=== PATIENT | female | born 1935 | race Caucasian/White ===

== ENCOUNTER 2024-09-06 16:01 | Outpatient (NON) | payer MEDICARE, SELFPAY ==
--- OUTSIDE RECORDS SUMMARY | 2024-09-06 16:03 | XMS_ITS | Referral Summary ---
Author Organization [facility] Address [address] [place] [address] Care Team Providers Care Online Marketing Coordinator Name Role Phone Bassam Sanchez MD Primary Care Provider + Encounters Date Type Department Care Team Description 08/27/2024 Telephone [facility] Primary Care at [address] [phone] Bassam Sanchez MD Med Refill 08/03/2024 11:30 AM TRANSPLANTER ORCHID Office Visit [facility] Primary Care at [address] [phone] Bassam Sanchez MD Right sided sciatica (Primary Dx); Osteopenia of multiple sites; BMI 21.0-21.9, adult; 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 07/24/2024 Telephone [facility] Primary Care at [address] [phone] Bassam Sanchez MD Additional Services Or Orders 07/23/2024 Telephone [facility] Primary Care at [address] [phone] Bassam Sanchez MD Test Results 07/23/2024 Telephone [facility] Primary Care at [address] [phone] Bassam Sanchez MD Medical Question/Miscellane ous 07/19/2024 Telephone [facility] Primary Care at [address] [place] [address] Erika Mukherjee 07/13/2024 Telephone [facility] [address] [place] [address] [address] [place] [phone] Reynaldo Justin NP 07/13/2024 7:41 AM TRANSPLANTER ORCHID - 07/13/2024 11:59 PM TRANSPLANTER ORCHID Hospital Encounter [facility] [address] [place] [address] [address] [place] [phone] Discharge Disposition: Discharge to home or self care 07/13/2024 2:45 PM TRANSPLANTER ORCHID Office Visit [facility] [address] [place] [address] [address] [place] [phone] Reynaldo Justin NP Fracture follow-up (Primary Dx); Closed fracture of multiple pubic rami, right, initial encounter (HCC) 07/12/2024 Orders Only [facility] [address] [place] [address] [address] [place] [phone] Reynaldo Justin NP Spine pain, lumbar (Primary Dx) 07/12/2024 Telephone [facility] [address] [place] [address] [address] [place] [phone] Reynaldo Justin NP Mri 07/10/2024 11:57 AM TRANSPLANTER ORCHID - 07/10/2024 11:59 PM TRANSPLANTER ORCHID Hospital Encounter [facility] [address] [place] [address] Lumbar radiculopathy, acute Discharge Disposition: Discharge to home or self care 07/09/2024 Telephone [facility] Primary Care at [address] [place] [phone] Bassam Sanchez MD Medical Question/Miscellane ous 07/06/2024 1:30 PM TRANSPLANTER ORCHID Office Visit [facility] Primary Care at [address] [place] [phone] Bassam Sanchez MD Lumbar radiculopathy, acute (Primary Dx); 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; Encounter for screening mammogram for malignant neoplasm of breast 06/28/2024 Orders Only [facility] Primary Care at [address] [place] [phone] Salazar Teixeira PA 06/28/2024 10:45 AM TRANSPLANTER ORCHID Office Visit [facility] at [address] [place] [phone] Zuleyma Quintero PA Lumbar radiculopathy, acute (Primary Dx) 06/20/2024 1:30 PM TRANSPLANTER ORCHID Office Visit [facility] Primary Care at [address] [place] [phone] Kelle Kumar, SEGUN Other closed fracture of right pubis with routine healing, subsequent encounter (Primary Dx); Hypertension, essential; Acute midline low back pain without sciatica 06/11/2024 Telephone [facility] Primary Care at [address] [place] [address] Michelle Aldridge MD Additional Services Or Orders 06/08/2024 Telephone [facility] [address] [place] [address] [address] [place] [phone] Marvin Joe from Last 3 Months Allergies No known active allergies Medications bimatoprost (LUMIGAN) 0.01 % ophthalmic drops 0.01 %. 0 0 05/17/20 14 Active ascorbic acid (ascorbic acid with macho hips) 500 mg tablet Take as directed 0 0 02/15/20 08 Active omega 6-rjt-esj-fish oil (FISH OIL) 60-90-500 mg capsule,delayed release(DR/EC) 0 0 02/15/20 08 Active Additional Information Patient taking differently: 1 each oral Daily, Reported on 08/03/2024 cholecalciferol (VITAMIN D-3) 1,000 unit Take 1 tablet/capsule (1,000 Units total) by mouth daily Active vitamin b complex tablet Take 1 tablet by mouth daily Active aspirin 81 mg enteric coated tablet Take 1 tablet (81 mg total) by mouth daily Active lisinopriL (PRINIVIL,ZESTR IL) 5 mg tablet TAKE 1 TABLET (5 MG TOTAL) BY MOUTH DAILY. 90 tablet 4 04/10/20 24 2024 Active ezetimibe (ZETIA) 10 mg tablet Take 1 tablet (10 mg total) by mouth daily 03/24/20 Active benzonatate (TESSALON) 100 mg capsuleIndicati ons:Cough Take 1 capsule (100 mg total) by mouth 3 (three) times a day as needed for cough 42 capsule 05/16/20 Active Additional Information Patient not taking.Reported on 08/03/2024 rosuvastatin (CRESTOR) 40 mg tablet TAKE 1 TABLET BY MOUTH EVERY DAY 90 tablet 1 06/16/20 Active lidocaine (LIDODERM) 5 %Indications:Shanita mbar radiculopathy, acute Place 1 patch on the skin daily Wear for 12 hours, remove for 12 hours. Replace with new patch. 10 patch 07/10/20 Active Additional Information Patient not taking.Reported on 08/03/2024 meloxicam (MOBIC) 7.5 mg tabletIndicatio ns:Osteoarthrit is Take 1 tablet (7.5 mg total) by mouth daily 30 tablet 11 07/10/20 24 2024 Active traMADoL (ULTRAM) 50 mg tablet Take 1 tablet (50 mg total) by mouth every 6 (six) hours as needed for pain 30 tablet 07/13/20 Active Additional Information Patient not taking.Reported on 08/03/2024 cinnamon bark 500 mg capsule Take 1 capsule (500 mg total) by mouth daily 06/11/20 Active turmeric 400 mg capsule Take 1 capsule by mouth daily 06/11/20 Active coenzyme Q10 100 mg capsule Take 1 capsule (100 mg total) by mouth daily 06/11/20 Active glucos sul 3WKg-ohv-eyljr- C-Mn (Glucosamine Chondroitin) 550-30-1 mg capsule Take 1 capsule by mouth daily 06/11/20 Active naloxone (NARCAN) 4 mg/actuation spray,non-aeros olIndications:r isk mitigation for opioid overdose,Just in case due to being on Tramadol. Administer 1 spray into affected nostril(s) as needed for opioid reversal Call 911. Administer a single spray in one nostril. Repeat every 3 minutes as needed if no or minimal response. 1 each 08/03/19 25 2025 Active alendronate (FOSAMAX) 70 mg tabletIndicatio ns:Post-Menopau estrella Osteoporosis Take 1 tablet (70 mg total) by mouth every 7 days Take in the morning with a full glass of water, on an empty stomach, and do not take anything else by mouth or lie down for the next 30 min. This is to be taken in addition to VIT D and CA to help support bone strength. 12 tablet 4 08/03/19 25 2025 Active calcium carbonate (OS-MONTRELL) 1,250 mg (500 mg elemental) tabletIndicatio ns:Post-Menopau estrella Osteoporosis Prevention Take 1 tablet (1,250 mg total) by mouth daily 30 tablet 11 08/03/19 25 2025 Active methocarbamoL (ROBAXIN) 500 mg tablet TAKE 1 TABLET (500 MG TOTAL) BY MOUTH 2 (TWO) TIMES A DAY NEEDED FOR MUSCLE SPASMS 60 tablet 08/08/19 25 2024 Active levothyroxine (SYNTHROID) 25 mcg tablet TAKE 1 TABLET BY MOUTH EVERY DAY 100 tablet 1 08/27/19 25 Active levothyroxine (SYNTHROID) 25 mcg tablet TAKE 1 TABLET BY MOUTH EVERY DAY 100 tablet 1 03/24/20 24 2024 Discontinued(R eorder) methocarbamoL (ROBAXIN) 500 mg tablet Take 1 tablet (500 mg total) by mouth 2 (two) times a day as needed for muscle spasms 60 tablet 06/20/20 24 2024 Discontinued Active Problems Problem Noted Date Diagnosed Date Osteopenia of multiple sites 08/03/2024 Overview (08/03/2024): FINDINGS: LEFT FEMORAL NECK: T-score -2.4 LEFT TOTAL HIP: T-score -2.0 LUMBAR SPINE: T-score -1.3 Assessment & Plan (08/03/2024 12:26 PM TRANSPLANTER ORCHID): Chronic, patient reports bone pain with recent fall and broken pubic ramus. DEXA scan 2020: Osteopenia with left femoral neck at-2.4, left hip at -2.0, lumbar spine-1.3. Meds: Vitamin-D Plan Start alendronate every 7 days, take with large glass of water on empty stomach, nothing for 30 minutes afterward, no lying down for 30 minutes. Start calcium and vitamin-D supplements Follow-up DEXA scan Lumbar pain asscoaited with DDD 07/12/2024 Assessment & Plan (07/12/2024 9:03 PM TRANSPLANTER ORCHID): Chronic, stable but having daily symptoms which decrease quality of life. No changes from established baseline, no red flag symptoms reported. Meds: Tylenol, Motrin as needed. Not following with specialist or therapist Kidney function normal 05/2024 Plan Start: Xray Lumbar spine Start: Lidocaine patches daily as needed Start: meloxicam 7.5 mg, educated no other NSAID's Continue: Tylenol 1000mg q6, Toradol prn, heat/Ice, stretching. Monitor with CMP Educated that Toradol is a opiate medication, can be addictive, and can increase risk for falls, resp depression. Have gone over her pain regimen and advised to take the Toradol last and when needed. She does not drive, but advised her to be careful after taking even if cooking and at home. Consider Duloxitine to help decrease chronic pain and transition away from opiate medication. Declined PT referral. 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 Pt not taking medication daily Will keep as third line for pain in spine with sciatic. MME 20 Educated on the risks of opiate medications: falls, resp depression, tolerance, addition. Pt reported she is not taking meications daily. Have advised to only take medication when needed and to use tylenol and other supportive care first. She does not have narcan rx, will start to mitigate risks. 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 Pt not taking medication daily MME 20 Educated on the risks of opiate medications: falls, resp depression, tolerance, addition. Pt reported she is not taking meications daily. Have advised to only take medication when needed and to use tylenol and other supportive care first. She does not have narcan rx, will start to mitigate risks. Closed fracture of right pubis 05/29/2024 Other closed fracture of right pubis, initial en counter 05/29/2024 Urethral spasm 05/16/2024 Assessment & Plan (05/16/2024 4:30 PM CDT): New concern Not at goal Poct dipstick all negative Encourage hydration and f/u prn Post-viral cough syndrome 05/15/2024 Assessment & Plan (05/16/2024 3:47 PM CDT): New concern 2/2 covid 2-3 weeks ago Tessalon perles and albuterol inhaler Chest xray ordered F/u in 1 month if no improvement Elevated ALT measurement 05/11/2023 Assessment & Plan (05/11/2023 10:56 AM CDT): Alt of 53 Mildly elevated She is going to cut back on some wine Recheck in 6 months. If it continues to go up, will consider hepatitis acute panel and US of the liver Hypertension, essential 05/04/2022 Assessment & Plan (06/20/2024 1:57 PM TRANSPLANTER ORCHID): Chronic, stable at goal. Continue Lisinopril 5mg as Rx. Recommend heart-healthy diet and regular exercise, resumed as tolerated with healing of MSK abnormality. Assessment & Plan (04/10/2024 9:41 PM CDT): Bp in the office today BP Readings from Last 1 Encounters: 01/23/24 120/86 Goal <140/90 Continue 2.5mg of lisinopril Recommend DASH diet, heart-healthy lifestyle, exercise. Discussed the risks of hypertension. F/u in 6 month Assessment & Plan (11/14/2023 11:22 AM CDT): Bp in the office today BP Readings from Last 1 Encounters: 11/14/23 140/78 Goal <140/90 Continue 2.5mg of lisinopril Discussed risk and benefits of medication Recommend DASH diet, heart-healthy lifestyle, exercise. Discussed the risks of hypertension. F/u in 6 month Assessment & Plan (05/11/2023 10:55 AM CDT): Bp in the office today BP Readings from Last 1 Encounters: 05/11/23 150/78 Repeat 124/78 Goal ,130/80 Continue 2.5mg of lisinopril Discussed risk and benefits of medication Recommend DASH diet, heart-healthy lifestyle, exercise. Discussed the risks of hypertension. F/u in 6 month Assessment & Plan (01/12/2023 9:52 AM CDT): Bp in the office today BP Readings from Last 1 Encounters: 01/12/23 138/66 Continue lisinopril 5mg daily Discussed risk and benefits of medication Recommend DASH diet, heart-healthy lifestyle, exercise. Discussed the risks of hypertension. F/u at annual visit Assessment & Plan (11/04/2022 10:30 AM CDT): Bp in the office today BP Readings from Last 1 Encounters: 05/04/22 148/70 Start lisinopril 5mg daily Discussed risk and benefits of medication Log bp at home Recommend DASH diet, heart-healthy lifestyle, exercise. Discussed the risks of hypertension. F/u in 1 months Assessment & Plan (05/04/2022 3:03 PM CDT): Bp in the office today BP Readings from Last 1 Encounters: 05/04/22 148/70 Log bp at home Recommend DASH diet, heart-healthy lifestyle, exercise. Discussed the risks of hypertension. F/u in 6 months If no improvement may need to start medications. Return sooner if worsening bp Pulmonary fibrosis (CMS/HCC) 01/25/2019 Assessment & Plan (04/10/2024 9:44 PM CDT): Stable / clinically quiescent. Will continue to monitor. Assessment & Plan (05/09/2023 3:34 PM CDT): Stable / clinically quiescent. Will continue to monitor. Assessment & Plan (04/30/2021 10:50 AM CDT): Stable and without issues flu shot and see with a flair Assessment & Plan (10/28/2020 11:21 AM CDT): Stable pulm fibrosis and no interventio fall flu shost had covid shots Assessment & Plan (06/26/2020 10:10 AM TRANSPLANTER ORCHID): pulm scaring stable land xray cleared ost infectgion Assessment & Plan (04/17/2020 5:04 PM CDT): Stable land alba lead to Delay in Improvement in cxr.discussed recs fdor flu alhd p sh ot series but declines Assessment & Plan (12/26/2019 2:00 PM CDT): Stable and little cough Assessment & Plan (06/21/2019 1:44 PM TRANSPLANTER ORCHID): Stable Findings oncxr on repeat declines flu shot. Assessment & Plan (01/25/2019 4:35 PM CDT): cxr abn . With pulm fibrosis. Check cxr the week before reutrn for f.u on fall flu shots and expect higher risk for p rolonged cough with get uri Right sided sciatica 06/21/2018 Assessment & Plan (08/03/2024 12:24 PM TRANSPLANTER ORCHID): Chronic, worse after recent fall Bi red flag symptoms reported Pt declined Pain management Consider gabapentin Advised weight loss, hydration, loose fitting cloths PT/Ot referral Assessment & Plan (06/21/2018 4:12 PM TRANSPLANTER ORCHID): 2 months and trial pt and zxee if helps. Look at xray if cont to stay active. 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 CLASSIFICATION Healthy weight: 18.5 to less than 25 Wt Readings from Last 3 Encounters: 08/03/24 55.8 kg (123 lb) 07/13/24 54.9 kg (121 lb) 07/06/24 56.2 kg (124 lb) Plan - Encouraged pt to continue with lifestyle modification: Diet/exercise, food tracking apps, diary to reflect on relationship with food. - Have educated patient that Mediterranean diet is widely accepted as the most balanced diet for both weight loss and sustained weight loss. Handout given. - Education given on risk associated with elevated BMI - Will set up follow up apt to discuss lifestyle modification, nutrition services, weight loss clinic, medications, CBT - Labs: CBC, CMP, TSH, A1c, lipids as needed to rule out medical causes. - Referrals today: No - BMI Follow-up includes: nutrition counseling, exercise counseling, and education provided. Assessment & Plan (11/02/2021 10:44 AM CDT): Keep st stable Assessment & Plan (04/30/2021 10:49 AM CDT): Work to keep wt stable Assessment & Plan (10/28/2020 11:29 AM CDT): Wt iniched up Assessment & Plan (06/26/2020 10:14 AM TRANSPLANTER ORCHID): Work to kep stable Assessment & Plan (12/26/2019 2:09 PM CDT): Work to keepwt stable Assessment & Plan (06/21/2018 4:09 PM TRANSPLANTER ORCHID): Work to keep stable Assessment & Plan (05/30/2017 9:58 AM TRANSPLANTER ORCHID): Work to keep wt stable Encounter for wellness examination 05/30/2017 Assessment & Plan (04/10/2024 9:45 PM CDT): Labs reviewed and discussed Flu decline Mammo up to date F/u in 1 year for annual Assessment & Plan (05/11/2023 10:07 AM CDT): Labs reviewed and discussed Flu decline mammo Colonosocopy:discusseds risks and benefits given age and negative colonoscopies in the past and would like to defer F/u in 1 year for annual Assessment & Plan (05/04/2022 2:58 PM CDT): Ordered CBC, cmp, lipid, hgb a1c, HIV, hep c, TSH, and free t4 Flu decline mammo referral placed Colonosocopy:discusseds risks and benefits given age and negative colonoscopies in the past and would like to defer F/u in 1 year for annual Assessment & Plan (04/30/2021 10:55 AM CDT): Low fallrisk depresion screen neg and score 0. cognitie screen normal no other md's seen Up to date bmd Colon 1 yrs ago and at age 85 aged out.suggest lyn but aged out does no take flu Shingles shot Had and has ahd covid See's no other md's Assessment & Plan (12/26/2019 2:11 PM CDT): Low fal lrisk depresion screen neg cog screen nl up to date on lyn Declines flu shots and p shot. Had shingles shot. At age 84 colon not done increase zetia to a fl tab Assessment & Plan (12/20/2018 3:22 PM CDT): Low fall risk. Depression screen nl. Colon screen in a yr.needs vaccine but declines, Assessment & Plan (05/30/2017 10:07 AM TRANSPLANTER ORCHID): dedliens all vaccines except eh shingles that she had. Colon 2009 and repeat 10 yrs usuaool. Lyn tahis last spring. bmd last fall and not repeat in a yr yet. IGT (impaired glucose tolerance) 05/30/2017 Assessment & Plan (11/02/2021 10:42 AM CDT): a1c at 6.2 and pre diabetic and stable Assessment & Plan (04/30/2021 10:51 AM CDT): a1c in general same rangge and current 5.7dn 5.6 nl Assessment & Plan (10/28/2020 11:26 AM CDT): a1c at 6.1 and up from 5.8 so watch diet Assessment & Plan (06/26/2020 10:15 AM TRANSPLANTER ORCHID): a1c at 5.8 and was 6.0 and better. Assessment & Plan (12/26/2019 2:02 PM CDT): a1c at 6.0 and frandy ped Assessment & Plan (06/21/2019 1:47 PM TRANSPLANTER ORCHID): a1c at 6.2 and 6.5 diabetes Assessment & Plan (01/25/2019 4:38 PM CDT): Watch diet Assessment & Plan (12/20/2018 3:15 PM CDT): The a1c at 5.9 and 5.6 nl. Assessment & Plan (06/21/2018 4:06 PM TRANSPLANTER ORCHID): a1c at 5.7 and 5.6 nl. Assessment & Plan (11/28/2017 10:18 AM CDT): a1c at 5.9 and 5.6 nl Assessment & Plan (05/30/2017 10:02 AM TRANSPLANTER ORCHID): a1c at 5.9 and 5.6 and lesssnl. Bilateral carotid artery disease 05/30/2017 Assessment & Plan (04/10/2024 9:43 PM CDT): Stable / clinically quiescent. Will continue to monitor. Assessment & Plan (05/09/2023 3:27 PM CDT): She usually gets the Dopplers on her home. Unchanged and stable Recommend repeat in 1 year Assessment & Plan (05/04/2022 2:57 PM CDT): She usually gets the Dopplers on her home. Unchanged and stable Recommend repeat in 1 year Assessment & Plan (11/02/2021 10:44 AM CDT): r mod and l mild on screen recheck maybe 2 yrs or less asa and tight risk Assessment & Plan (04/30/2021 10:48 AM CDT): Prior mild and Several risk Tight but ask to repeat carotid study Assessment & Plan (10/28/2020 11:23 AM CDT): Carotid stable and recheck every 2 yrs and stay on tight risk congtorll Assessment & Plan (06/26/2020 10:14 AM TRANSPLANTER ORCHID): Tight risk ctonroll. Assessment & Plan (12/26/2019 2:01 PM CDT): Asa and risk contoll Assessment & Plan (06/21/2019 1:48 PM TRANSPLANTER ORCHID): Tight risk controll Assessment & Plan (01/25/2019 4:38 PM CDT): erly this yr and repeat in 18 month and tight riskcontroll Assessment & Plan (12/20/2018 3:13 PM CDT): Take asa, risk controll Assessment & Plan (06/21/2018 4:09 PM TRANSPLANTER ORCHID): Tighten risk . ldl less tehn 90 and prefer less then 70 rescan q 2 yrs. Will ask to repeat for nov Assessment & Plan (11/28/2017 10:20 AM CDT): Cont asa and check every 2 yrs Assessment & Plan (05/30/2017 10:04 AM TRANSPLANTER ORCHID): Stay on asa and recheck every 2yrs. Nuclear senile cataract 10/09/2014 Primary open angle glaucoma 10/09/2014 Hyperlipidemia 05/17/2014 Overview (10/22/2016): Hyperlipemia Assessment & Plan (04/10/2024 9:42 PM CDT): The ASCVD Risk score (Salvador SMITH, et al., 2019) failed to calculate for the following reasons: The 2019 ASCVD risk score is only valid for ages 40 to 79 Stable / clinically quiescent. Will continue to monitor. Assessment & Plan (11/14/2023 11:33 AM CDT): Stable / clinically quiescent. Will continue to monitor. [place] lightheaded with the cholesterol medication so he stopped taking it. Can consider taking cholesterol medication 3x/week Lipid panel ordered Assessment & Plan (05/09/2023 3:28 PM CDT): Stable / clinically quiescent. Will continue to monitor. Continue zetia 10mg and rosuvastatin 40mg daily Assessment & Plan (05/04/2022 2:39 PM CDT): Stable / clinically quiescent. Will continue to monitor. Continue zetia 10mg and rosuvastatin 40mg daily Assessment & Plan (11/02/2021 10:42 AM CDT): ldl at 61 and great and At a level to ohelp stop and possible reverse disease. Your cholesterol in the form of ldl (bad) cholesterol,hdl(good) cholesterol and triglycerides are monitored. The triglycerides respond to reduction/controll of your simple carbs/sugars In such items as sugared soda/sweet tea along with fruit juices(containing natural sugar) even if no added sugar is added. LDL cholesterol is reduced with reducing daily intake of fats and deandra. saturated fats. The monosaturated fats like olive oil are not harmful except in the calories they contained. Whole milk cheese needs to be remembered along with whole milk products And limited. Assessment & Plan (04/30/2021 10:49 AM CDT): ldl at 63 and great with last 77 and keep meds adn Your cholesterol in the form of ldl (bad) cholesterol,hdl(good) cholesterol and triglycerides are monitored. The triglycerides respond to reduction/controll of your simple carbs/sugars In such items as sugared soda/sweet tea along with fruit juices(containing natural sugar) even if no added sugar is added. LDL cholesterol is reduced with reducing daily intake of fats and deandra. saturated fats. The monosaturated fats like olive oil are not harmful except in the calories they contained. Whole milk cheese needs to be remembered along with whole milk products And limited. Assessment & Plan (10/28/2020 11:26 AM CDT): ldl at 61 and good congtorll. The common cold or uri(upper respiratory infections) are uniformly caused by viruses.The use of antibiotics for these infections are discouraged in our day and age as a risk without much if any benefit,Increase fluids will help to thin the secretions.Over the counter meds/cold drugs do not cure this problem but can provide help in tolerating the illness.. Some find the decongestant meds helpful but many find them causing more complaints then they are worth. Cough meds come into play when you cannot control the cough,This comes into play deandra.at night when you are trying to sleep. Short term use of nasal decongestants are helpful ,deandra.at night, Using them at a full dose for more then 3 days is highly associated with your nose becoming addicted to them,when this happens the nasal membranes will dilate the blood vessels within the nasal wall and weep secretions that plug up your nose. When this occurs it will take several days to return to normal. There is a place for nasal steroid during a cold as a way to help limit secretions and not lead to a nasal addition. Nasal over dryness and subsequent bleeding then can occur.ar which time yo will need to reduce or stop there use for the near future. Assessment & Plan (06/26/2020 10:12 AM TRANSPLANTER ORCHID): ldl at 77 and tolerates meds and maxed out on crestor and aetia 10 no chags and watch fats in dietYour cholesterol in the form of ldl (bad) cholesterol,hdl(good) cholesterol and triglycerides are monitored. The triglycerides respond to reduction/controll of your simple carbs/sugars In such items as sugared soda/sweet tea along with fruit juices(containing natural sugar) even if no added sugar is added. LDL cholesterol is reduced with reducing daily intake of fats and deandra. saturated fats. The monosaturated fats like olive oil are not harmful except in the calories they contained. Whole milk cheese needs to be remembered along with whole milk products And limited. Assessment & Plan (12/26/2019 2:06 PM CDT): ldl at 69 and want here or tighterYour cholesterol in the form of ldl (bad) cholesterol,hdl(good) cholesterol and triglycerides are monitored. The triglycerides respond to reduction/controll of your simple carbs/sugars In such items as sugared soda/sweet tea along with fruit juices(containing natural sugar) even if no added sugar is added. LDL cholesterol is reduced with reducing daily intake of fats and deandra. saturated fats. The monosaturated fats like olive oil are not harmful except in the calories they contained. Whole milk cheese needs to be remembered along with whole milk products And limited. Assessment & Plan (06/21/2019 1:47 PM TRANSPLANTER ORCHID): ldl at 85 on max crestor ,discussed adding 1/2 qetia to and see drop about 20Your cholesterol in the form of ldl (bad) cholesterol,hdl(good) cholesterol and triglycerides are monitored. The triglycerides respond to reduction/controll of your simple carbs/sugars In such items as sugared soda/sweet tea along with fruit juices(containing natural sugar) even if no added sugar is added. LDL cholesterol is reduced with reducing daily intake of fats and deandra. saturated fats. The monosaturated fats like olive oil are not harmful except in the calories they contained. Whole milk cheese needs to be remembered along with whole milk products And limited. Assessment & Plan (01/25/2019 4:38 PM CDT): L;dl target 60 if able Assessment & Plan (12/20/2018 3:16 PM CDT): ldl at 78 and good Assessment & Plan (06/21/2018 4:18 PM TRANSPLANTER ORCHID): ldl dropped to 86 and bvetter and want to keep hereYour cholesterol in the form of ldl (bad) cholesterol,hdl(good) cholesterol and triglycerides are monitored. The triglycerides respond to reduction/controll of your simple carbs/sugars In such items as sugared soda/sweet tea along with fruit juices(containing natural sugar) even if no added sugar is added. LDL cholesterol is reduced with reducing daily intake of fats and deandra. saturated fats. The monosaturated fats like olive oil are not harmful except in the calories they contained. Whole milk cheese needs to be remembered along with whole milk products And limited.will go to 40 mg Assessment & Plan (11/28/2017 10:18 AM CDT): ldl at 92 and target into 60'sagrees to go to 20 mgon the dcrestorYour cholesterol in the form of ldl (bad) cholesterol,hdl(good) cholesterol and triglycerides are monitored. The triglycerides respond to reduction/controll of your simple carbs/sugars In such items as sugared soda/sweet tea along with fruit juices(containing natural sugar) even if no added sugar is added. LDL cholesterol is reduced with reducing daily intake of fats and deandra. saturated fats. The monosaturated fats like olive oil are not harmful except in the calories they contained. Whole milk cheese needs to be remembered along with whole milk products And limited. Assessment & Plan (05/30/2017 9:58 AM TRANSPLANTER ORCHID): ldl at 90 and dropped 40. tstay at present. Expect with a ading the low dose thyroid will likely drop the ldl futrrther.Your cholesterol in the form of ldl (bad) cholesterol,hdl(good) cholesterol and triglycerides are monitored. The triglycerides respond to reduction/controll of your simple carbs/sugars In such items as sugared soda/sweet tea along with fruit juices(containing natural sugar) even if no added sugar is added. LDL cholesterol is reduced with reducing daily intake of fats and deandra. saturated fats. The monosaturated fats like olive oil are not harmful except in the calories they contained. Whole milk cheese needs to be remembered along with whole milk products And limited. Hypothyroidism 12/01/2013 Overview (10/22/2016): HYPOTHYROIDISM NOS Assessment & Plan (04/10/2024 9:43 PM CDT): Stable Continue levothyroxine 25mcg daily Assessment & Plan (05/09/2023 3:32 PM CDT): Stable Continue levothyroxine 25mcg daily Assessment & Plan (05/04/2022 2:39 PM CDT): Stable Continue levothyroxine 25mcg daily Assessment & Plan (11/02/2021 10:43 AM CDT): Check on reutrn Assessment & Plan (04/30/2021 10:50 AM CDT): tsh at 3.6 nl and no med changs and keep same Assessment & Plan (10/28/2020 11:27 AM CDT): Stay on meds was not aware name and thought not taking called pharm and confirm on 215 ug and will cont and tsh onreturn Assessment & Plan (06/26/2020 10:12 AM TRANSPLANTER ORCHID): tsh in 3's and nl and no chags in meds Assessment & Plan (12/26/2019 2:08 PM CDT): Check tsh on return Assessment & Plan (06/21/2019 1:48 PM TRANSPLANTER ORCHID): Check tsh on return Assessment & Plan (01/25/2019 4:38 PM CDT): No cohanges and chedk yr'ly Assessment & Plan (12/20/2018 3:15 PM CDT): tsh 3 and nl no changs Assessment & Plan (08/04/2018 8:29 AM TRANSPLANTER ORCHID): Nov TSH 3.07 and WNL Assessment & Plan (06/21/2018 4:09 PM TRANSPLANTER ORCHID): Keep meds stable and check tsh o return Assessment & Plan (11/28/2017 10:18 AM CDT): tsh perferct and stay on same dose Assessment & Plan (05/30/2017 9:59 AM TRANSPLANTER ORCHID): tsh at 5.45 and as drifted up it is mildly off meaning the thyroid is working harder trying to keep up. Add a slmall dose of thryoid meds and usually this will also frandy the chol level. But I don't expet that you will be aware of the thyroid effect. 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 If no improvement may consider referral to infectious disease Assessment & Plan (12/26/2023 3:17 PM CDT): New concern Worsening Start keflex 500mg 4x/day for 7 days Red flags discussed F/u if no improvement in 7-10 days and will consider extending the antibiotic or changing it Acute cystitis without hematuria 06/26/2020 11/02/2021 Assessment & Plan (06/26/2020 10:44 AM TRANSPLANTER ORCHID): Freq,urgency dysuria Starting 4 days ago urine very dilute so abn elements diluted out will wait for culture and treat with macrobid till results back Acute bronchitis due to othe r specified organisms 12/27/2018 06/21/2019 Assessment & Plan (01/25/2019 4:36 PM CDT): No cough I presence or With deep breath. Much much better Assessment & Plan (01/03/2019 2:47 PM CDT): produictive cough better with cougho itself cont. Does not hear wheze anymore. 5 days 500 zithromax. Landen with fev1% 72 and pef 40 with mild obstrucgtive defect. Trial prednsone tpaER. GET A ONE TME CXR NOONE FOR YRS IF EEVER RE EVAL 2-3 WKS Assessment & Plan (12/27/2018 1:45 PM CDT): Cough and wheeze new. One time cough spot blood. Spells of cough and take away breath deandra at night. gibven time. speels of cougho alba try zithromaasz an d ask to see nex week and re eval. Trial 500 x's 5 zithromax At low risk for fall 12/20/2018 025 Assessment & Plan (04/30/2021 10:48 AM CDT): Low fall risk Assessment & Plan (12/26/2019 2:08 PM CDT): Low fall risk Assessment & Plan (12/20/2018 3:13 PM CDT): Low fall risk Pneumonia, bacterial 020 Assessment & Plan (04/17/2020 5:00 PM CDT): Post hospital and rx no cough or Fever feelse good. Repeat cxr o Dc beteter but not cleared. 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 Immunizations Immunization Administration Dates Next Due COVID-19 mRNA (C[employer]Cloud) 0.3 m L (30 mcg) vaccine (12 years and up) 05/16/2024,04/08/2023 Influenza, Trivalent, Adjuva nted, Intramuscular 05/16/2024 Influenza, Trivalent, IM (MDV) 06/05/2008 Influenza, Unspecified 06/20/2024(Deferr ed: Patient Refused),11/14/2023(Deferred: Patient Refused),05/04/2022(Deferred: Patient Refused),02/15/2022(Deferred: Patient Refused),04/30/2021(Deferred: Patient Refused),02/18/2021(Deferred: Patient Refused),02/15/2021(Deferred: Patient Refused),04/17/2020(Deferred: Patient Refused),06/21/2019(Deferred: Patient Refused),03/27/2019(Deferred: Patient Refused),06/21/2018(Deferred: Patient Refused - HM update),04/17/2018(Deferred: Patient Refused) Moderna Sars-cov-2 Bivalent Vaccine 50 Mcg/0.5 mL (12+ YRS)-Blue/Julio 05/05/2022 Pfizer SARS-CoV-2 Monovalent Vaccination (12+ Yrs) JULIO-READY TO USE 12/25/2021 Pfizer SARS-CoV-2 Monovalent Vaccination (12+ Yrs) PURPLE 04/06/2023,12/25/2021,05/05/2021,09/05,08/11/2020 Pfizer Sars-Cov-2 Bivalent V accination (12+ YRS) 05/04/2022 Pneumococcal Conjugate PCV 13 06/26/2020 Pneumococcal Conjugate, Unspecified 05/11/2023(D eferred: Patient Refused) RSV Vaccine, Pref, Recombina nt, Subunit, Adjuvanted, PF, IM (Arexvy) 04/08/2023 Rotavirus, Unspecified 04/06/2023 ZOSTER Recombinant 09/19/2019,06/06/2019 Social History Tobacco Use Types Packs/Day Years Used Date Smoking Tobacco: Never Smokeless Tobacco: Never Tobacco Cessation:Counseling Given: Not Answered Alcohol Use Standard Drinks/Week Comments Yes 0 (1 standard drink = 0.6 oz pur e alcohol) [facility] dot429ities Answer Date Recorded In the past 12 months has [employer], gas, oil, or water [employer] threatened to shut off services in your home? No 05/30/2024 Social Connection and Isolat ion Panel [NHANES] Answer Date Recorded In a typical week, how many times do you talk on the phone with family, friends, or neighbors? More than three times a week 05/30/2024 How often do you get togethe r with friends or relatives? Three times a week 05/30/2024 How often do you attend chur ch or faith services? Never 05/30/2024 Do you belong to any clubs o r organizations such as evangelical groups, unions, fraternal or athletic groups, or school groups? No 05/30/2024 How often do you attend meet ings of the clubs or organizations you belong to? Never 05/30/2024 Are you , , di vorced, , never , or living with a partner? 05/30/2024 AUDIT-C Answer Date Recorded Q1: How often do you have a drink containing alcohol? Never 07/13/2024 Q2: How many drinks containi ng alcohol do you have on a typical day when you are drinking? Patient does not drink Q3: How often do you have si x or more drinks on one occasion? Never 07/13/2024 Overall Financial Resource Strain (CARDIA) Answe r Date Recorded How hard is it for you to pa y for the very basics like food, housing, medical care, and heating? Not very hard 05/30/2024 PHQ-2 Answer Date Recorded PHQ-2 Total Score (If total score is 3 or more points, staff should administer the PHQ-9) 0 07/06/2024 Hunger Vital Sign Answer Date Recorded Within the past 12 months, y ou worried that your food would run out before you got the money to buy more. Never true 05/30/20 24 Within the past 12 months, t he food you bought just didn't last and you didn't have money to get more. Never true 05/30/2024 PRAPARE - Transportation Answer Date Re corded In the past 12 months, has l ack of transportation kept you from medical appointments or from getting medications? No 05/18 In the past 12 months, has l ack of transportation kept you from meetings, work, or from getting things needed for daily living? No 05/30/2024 Housing Stability Vital Sign Answer Dimas e Recorded In the last 12 months, was t here a time when you were not able to pay the mortgage or rent on time? No 05/30/2024 In the past 12 months, how m any times have you moved where you were living? 0 05/30/2024 At any time in the past 12 m [facility], were you homeless or living in a penitentiary (including now)? No 05/30/2024 Personal Safety Answer Date Recorded Have you ever been in or are you currently in a harmful physical or emotional relationship or is someone making you feel afraid or unsafe? Denies 05/29/2024 Comments No Sex and Gender Information Value Date Recorded Sex Assigned at Not on file Legal Sex Female 1:06 PM TRANSPLANTER ORCHID Gender Identity Not on file Sexual Orientation Not on file Last Filed Vital Signs Vital Sign Reading Time Taken Comments Blood Pressure 132/72 08/03/2024 11:33 AM TRANSPLANTER ORCHID Pulse 76 08/03/2024 11:33 AM TRANSPLANTER ORCHID Temperature 36.9 C (98.4 F) 08/03/2024 11:33 AM TRANSPLANTER ORCHID Respiratory Rate 16 08/03/2024 11:33 AM TRANSPLANTER ORCHID Oxygen Saturation 99% 06/28/2024 10:36 AM TRANSPLANTER ORCHID Inhaled Oxygen Concentration - - Weight 55.8 kg (123 lb) 08/03/2024 11:33 AM TRANSPLANTER ORCHID Height 162.6 cm (5' 4 ) 08/03/2024 11:33 AM TRANSPLANTER ORCHID Body Mass Index 21.11 08/03/2024 11:33 AM TRANSPLANTER ORCHID Plan of Treatment Not on file Procedures Procedure Name Priority Date/Time Associated Diagnosis Comments XR PELVIS 1 OR 2 VIEWS Schedule Routine, Read Routine (OP Routine) 07/13/2024 2:41 PM TRANSPLANTER ORCHID Fracture follow-up XR LUMBAR SPINE AP LAT FLEX EX Schedule Routine, Read Routine (OP Routine) 07/10/2024 12:15 PM TRANSPLANTER ORCHID Lumbar radiculopathy, acute SCREENING MAMMOGRAM BILATERAL W VICTORIA Schedule Routine, Read Routine (OP Routine) 09/07/2023 12:55 PM TRANSPLANTER ORCHID Visit for screening mammogram HM COLONOSCOPY Routine 12/17/2009 from Last 3 Months or Most Recently Relevant to Health Maintenance Results * XR Pelvis 1 or 2 Views (07/13/2024 2:41 PM TRANSPLANTER ORCHID) Anatomical Region Laterality Modality Body, Pelvis N/A Digital Radiogra phy Narrative 07/13/2024 3:10 PM TRANSPLANTER ORCHID Superior and inferior right pubic rami fractures are again seen. No worsening displacement is noted. Limited healing is seen Reynaldo Cory Justin PURCHASING ANALYST IMG XR PROCEDURES Final Result * XR Spine Lumbar Ap Lat Flex Ext min 4 Views (07/10/2024 12:15 PM TRANSPLANTER ORCHID) Anatomical Region Laterality Modality L-spine N/A Computed Radiogr aphy 07/11/2024 1:36 PM TRANSPLANTER ORCHID Narrative 07/11/2024 1:42 PM TRANSPLANTER ORCHID EXAM DESCRIPTION: XR SPINE LUMBAR AP LAT FLEX EXT MIN 4 VIEWS REASON FOR STUDY: Lumbar back pain Lower back pain X's 1 month. Pain radiates down left leg. Fall Nov.1 fx. Pelvis. TECHNIQUE: Frontal, lateral, flexion, extension and cone-down radiographic view(s) of the lumbar spine. COMPARISON: No direct comparison is available. Relevant portions of the CT abdomen and pelvis dated 05/29/2024. FINDINGS: There are 5 acz-oaa-arscvji lumbar type vertebral bodies. Insert demineralized there is mild levoconvex curvature. Grade 1 retrolisthesis of L1 on L2 and L2 on L3 without significant change on flexion or extension. The L3 superior endplate mild depression is likely a Schmorl's node as seen on the previous CT abdomen and pelvis. Severe intervertebral disc height loss with endplate degenerative changes at L1-L2, L5-S1 and to a lesser extent at the remainder of the lumbar levels. There is diffuse facet arthropathy. Fractures of the right superior and inferior pubic rami are again seen. Previously noted sacral fractures are not well visualized on these radiographs. There are vascular calcifications. IMPRESSION: 1. 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 2. Lumbar vertebral body heights are maintained. 3. Further evaluation with MRI as clinically indicated. 4. Right superior inferior pubic rami fractures are again seen. 5. Additional findings as above. THIS IS AN ELECTRONICALLY VERIFIED FINAL REPORT 07/11/2024 1:42 PM - Electronically signed by Dar Reagan D.O. AP: AP Report ID: [id number] Reading Location: [id number] Procedure Note Dar Reagan, DO - 07/11/2024 EXAM DESCRIPTION: XR SPINE LUMBAR AP LAT FLEX EXT MIN 4 VIEWS REASON FOR STUDY: Lumbar back pain Lower back pain X's 1 month. Pain radiates down left leg. Fall Nov.1fx. Pelvis. TECHNIQUE: Frontal, lateral, flexion, extension and cone-downradiographic view(s) of the lumbar spine. COMPARISON: No direct comparison is available. Relevant portions of theCT abdomen and pelvis dated 05/29/2024. FINDINGS: There are 5 dlh-gmo-tzcvlpt lumbar type vertebral bodies. Insert demineralized there is mild levoconvex curvature. Grade 1 retrolisthesisof L1 on L2 and L2 on L3 without significant change on flexion or extension.The L3 superior endplate mild depression is likely a Schmorl's node as seen onthe previous CT abdomen and pelvis. Severe intervertebral disc height losswith endplate degenerative changes at L1-L2, L5-S1 and to a lesser extent atthe remainder of the lumbar levels. There is diffuse facet arthropathy. Fractures of the right superior and inferior pubic rami are again seen. Previously noted sacral fractures are not well visualized on these radiographs. There are vascular calcifications. IMPRESSION: 1. 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 2. Lumbar vertebral body heights are maintained. 3. Further evaluation with MRI as clinically indicated. 4. Right superior inferior pubic rami fractures are again seen. 5. Additional findings as above. THIS IS AN ELECTRONICALLY VERIFIED FINAL REPORT 07/11/2024 1:42 PM - Electronically signed by Dar Reagan D.O. AP: AP Report ID: [id number] Reading Location: [id number] us Bassam Sanchez MD IMG XR PROCEDURES Final Result * SCREENING MAMMOGRAM BILATERAL W VICTORIA (09/07/2023 12:55 PM TRANSPLANTER ORCHID) Anatomical Region Laterality Modality Breast Bilateral Mammography 09/07/2023 1:07 PM TRANSPLANTER ORCHID Impressions 09/07/2023 1:07 PM TRANSPLANTER ORCHID There is no mammographic evidence of malignancy. A 1 year screening mammogram is recommended. BI-RADS: 1 - Negative. The patient has been or will be contacted. The patient will be entered into a reminder system with a target due date of 1 year for her next mammogram. Electronically signed by: Yanet Hand M.D. Narrative 09/07/2023 1:07 PM TRANSPLANTER ORCHID EXAMINATION: SCREENING MAMMOGRAM BILATERAL W VICTORIA ORDERING HEALTHCARE PROVIDER: MICHELLE ALDRIDGE HISTORY: Routine screening mammography. COMPARISON: 10/03/2019, 10/20/2016, 12/03/2014 TECHNIQUE: CC and MLO views of the bilateral breasts were obtained with digital technique using breast tomosynthesis with C view. Computer aided detection was utilized. FINDINGS: DENSITY: There are scattered fibroglandular elements in the bilateral breasts. BREASTS: There are no suspicious masses, suspicious calcifications, or other suspicious findings in either breast. There has been no suspicious interval change. Michelle Aldridge MD IMG MAMMO PROCEDURES Final Result * COLONOSCOPY (12/17/2009) Colonoscopy Normal Historical Provider HEALTH MAINTENANCE Final Result from Last 3 Months or Most Recently Relevant to Health Maintenance Insurance [employer] MEDICARE A[employer] MEDICARE Advance Directives For more information, please contact: [phone] * Full Code (Latest Code Status on File) Date Activated Date Inactivated Comments 05/29/2024 9:52 PM 06/01/2024 5:33 PM * LIMITED - No CPR Date Activated Date Inactivated Comments 04/07/2020 1:14 PM 04/09/2020 10:54 PM Question Answer Comments Provide aggressive medical m anagement before a full cardiopulmonary arrest occurs. Use antibiotics, IV Fluids, and medical treatment unless specifically selected below: No intubationNo cardioversionNo internal / external pacemakerNo vasopressors * Full Code Date Activated Date Inactivated Comments 04/07/2020 1:10 PM 04/07/2020 1:14 PM Care Teams Online Marketing Coordinator Relationship Specialty Start Date End Date Bassam Sanchez MD [id number] [place] [id number] PCP - General Family Medicine 07/06/24
--- OUTSIDE RECORDS SUMMARY | 2024-09-06 16:03 | XMS_ITS | Clinical Summary ---
Author Organization [facility] Address [address] [place] [address] Care Team Providers Care Marketing Communications Leader Name Role Phone Bassam Sanchez MD Primary Care Provider + Allergies No known active allergies Medications bimatoprost (LUMIGAN) 0.01 % ophthalmic drops 0.01 %. 0 0 05/17/20 14 Active ascorbic acid (ascorbic acid with macho hips) 500 mg tablet Take as directed 0 0 02/15/20 08 Active omega 3-kji-zsd-fish oil (FISH OIL) 60-90-500 mg capsule,delayed release(DR/EC) [...] as needed for cough 42 capsule 05/16/20 24 Active Additional Information Patient not taking.Reported on [...] by mouth daily 06/11/20 Active glucos sul 1RAs-jlp-fzgbm- C-Mn (Glucosamine Chondroitin) 550-30-1 mg capsule Take [...] -1.3 Assessment & Plan (08/03/2024 12:26 PM BULK COOLERS INSTALLER): Chronic, patient reports bone pain with recent [...] 07/12/2024 Assessment & Plan (07/12/2024 9:03 PM BULK COOLERS INSTALLER): Chronic, stable but having daily symptoms which [...] purpose Assessment & Plan (08/03/2024 12:13 PM BULK COOLERS INSTALLER): Pt taking tramadol for lumbar pain with [...] risks. Assessment & Plan (07/12/2024 9:10 PM BULK COOLERS INSTALLER): Pt taking tramadol for lumbar pain with [...] 05/04/2022 Assessment & Plan (06/20/2024 1:57 PM BULK COOLERS INSTALLER): Chronic, stable at goal. Continue Lisinopril 5mg [...] Return sooner if worsening bp Pulmonary fibrosis ([facility]/HCC) 01/25/2019 Assessment & Plan (04/10/2024 9:44 PM [...] shots Assessment & Plan (06/26/2020 10:10 AM BULK COOLERS INSTALLER): pulm scaring stable land xray cleared ost infectgion Assessment & Plan (04/17/2020 5:04 PM CDT): Stable land alba lead to Delay in Improvement in cxr.discussed recs fdor flu alhd p sh ot series but declines Assessment & Plan (12/26/2019 2:00 PM CDT): Stable and little cough Assessment & Plan (06/21/2019 1:44 PM BULK COOLERS INSTALLER): Stable Findings oncxr on repeat declines flu shot. Assessment & Plan (01/25/2019 4:35 PM CDT): cxr abn . With pulm fibrosis. Check cxr the week before reutrn for f.u on fall flu shots and expect higher risk for p rolonged cough with get uri Right sided sciatica 06/21/2018 Assessment & Plan (08/03/2024 12:24 PM BULK COOLERS INSTALLER): Chronic, worse after recent fall Bi red flag symptoms reported Pt declined Pain management Consider gabapentin Advised weight loss, hydration, loose fitting cloths PT/Ot referral Assessment & Plan (06/21/2018 4:12 PM BULK COOLERS INSTALLER): 2 months and trial pt and zxee if helps. Look at xray if cont to stay active. 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 [...] up Assessment & Plan (06/26/2020 10:14 AM BULK COOLERS INSTALLER): Work to kep stable Assessment & Plan (12/26/2019 2:09 PM CDT): Work to keepwt stable Assessment & Plan (06/21/2018 4:09 PM BULK COOLERS INSTALLER): Work to keep stable Assessment & Plan (05/30/2017 9:58 AM BULK COOLERS INSTALLER): Work to keep wt stable Encounter for [...] declines, Assessment & Plan (05/30/2017 10:07 AM BULK COOLERS INSTALLER): dedliens all vaccines except eh shingles that [...] diet Assessment & Plan (06/26/2020 10:15 AM BULK COOLERS INSTALLER): a1c at 5.8 and was 6.0 and better. Assessment & Plan (12/26/2019 2:02 PM CDT): a1c at 6.0 and frandy ped Assessment & Plan (06/21/2019 1:47 PM BULK COOLERS INSTALLER): a1c at 6.2 and 6.5 diabetes Assessment & Plan (01/25/2019 4:38 PM CDT): Watch diet Assessment & Plan (12/20/2018 3:15 PM CDT): The a1c at 5.9 and 5.6 nl. Assessment & Plan (06/21/2018 4:06 PM BULK COOLERS INSTALLER): a1c at 5.7 and 5.6 nl. Assessment & Plan (11/28/2017 10:18 AM CDT): a1c at 5.9 and 5.6 nl Assessment & Plan (05/30/2017 10:02 AM BULK COOLERS INSTALLER): a1c at 5.9 and 5.6 and lesssnl. [...] congtorll Assessment & Plan (06/26/2020 10:14 AM BULK COOLERS INSTALLER): Tight risk ctonroll. Assessment & Plan (12/26/2019 2:01 PM CDT): Asa and risk contoll Assessment & Plan (06/21/2019 1:48 PM BULK COOLERS INSTALLER): Tight risk controll Assessment & Plan (01/25/2019 4:38 PM CDT): erly this yr and repeat in 18 month and tight riskcontroll Assessment & Plan (12/20/2018 3:13 PM CDT): Take asa, risk controll Assessment & Plan (06/21/2018 4:09 PM BULK COOLERS INSTALLER): Tighten risk . ldl less tehn 90 and prefer less then 70 rescan q 2 yrs. Will ask to repeat for nov Assessment & Plan (11/28/2017 10:20 AM CDT): Cont asa and check every 2 yrs Assessment & Plan (05/30/2017 10:04 AM BULK COOLERS INSTALLER): Stay on asa and recheck every 2yrs. Nuclear senile cataract 10/09/2014 Primary open angle glaucoma 10/09/2014 Hyperlipidemia 05/17/2014 Overview (10/22/2016): Hyperlipemia Assessment & Plan (04/10/2024 9:42 PM CDT): The ASCVD Risk score (Salvador DK, et al., 2019) failed to calculate for the following reasons: The 2019 ASCVD risk score is only valid for ages 40 to 79 Stable / clinically quiescent. Will continue to monitor. Assessment & Plan (11/14/2023 11:33 AM CDT): Stable / clinically quiescent. Will continue to monitor. [place] lightheaded with the cholesterol medication so he [...] future. Assessment & Plan (06/26/2020 10:12 AM BULK COOLERS INSTALLER): ldl at 77 and tolerates meds and [...] limited. Assessment & Plan (06/21/2019 1:47 PM BULK COOLERS INSTALLER): ldl at 85 on max crestor ,discussed [...] good Assessment & Plan (06/21/2018 4:18 PM BULK COOLERS INSTALLER): ldl dropped to 86 and bvetter and [...] limited. Assessment & Plan (05/30/2017 9:58 AM BULK COOLERS INSTALLER): ldl at 90 and dropped 40. tstay [...] onreturn Assessment & Plan (06/26/2020 10:12 AM BULK COOLERS INSTALLER): tsh in 3's and nl and no chags in meds Assessment & Plan (12/26/2019 2:08 PM CDT): Check tsh on return Assessment & Plan (06/21/2019 1:48 PM BULK COOLERS INSTALLER): Check tsh on return Assessment & Plan (01/25/2019 4:38 PM CDT): No cohanges and chedk yr'ly Assessment & Plan (12/20/2018 3:15 PM CDT): tsh 3 and nl no changs Assessment & Plan (08/04/2018 8:29 AM BULK COOLERS INSTALLER): Nov TSH 3.07 and WNL Assessment & Plan (06/21/2018 4:09 PM BULK COOLERS INSTALLER): Keep meds stable and check tsh o return Assessment & Plan (11/28/2017 10:18 AM CDT): tsh perferct and stay on same dose Assessment & Plan (05/30/2017 9:59 AM BULK COOLERS INSTALLER): tsh at 5.45 and as drifted up [...] NOS Assessment & Plan (06/26/2020 10:14 AM BULK COOLERS INSTALLER): Repeat bmd on return Resolved Problems Problem [...] 11/02/2021 Assessment & Plan (06/26/2020 10:44 AM BULK COOLERS INSTALLER): Freq,urgency dysuria Starting 4 days ago urine [...] hear wheze anymore. 5 days 500 zithromax. [place] with fev1% 72 and pef 40 with [...] the cxr I 4-6 wks and confirm detention new stable state and keep Reg o.v. 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 07/24/2024 Telephone [facility] Primary [facility] at [address] [phone] Bassam Sanchez MD Additional Services Or Orders 07/23/2024 Telephone [facility] Primary [facility] at [address] [phone] Bassam Sanchez MD Test Results 07/23/2024 Telephone [facility] Primary Care at [address] [place] [phone] Bassam Sanchez MD Medical Question/Miscellane ous 07/19/2024 Telephone [facility] Primary [facility] at [address] [place] [phone] Erika MukherjeeSkylar 07/13/2024 2:45 PM BULK COOLERS INSTALLER Office Visit [facility] [address] [place] [address] [address] [place] [phone] Reynaldo Justin NP Fracture follow-up (Primary Dx); Closed fracture of multiple pubic rami, right, initial encounter ([facility]) 07/13/2024 7:41 AM BULK COOLERS INSTALLER - 07/13/2024 11:59 PM BULK COOLERS INSTALLER Hospital Encounter [facility] [address] [place] [address] [address] [place] [phone] Discharge Disposition: Discharge to home or self care 07/13/2024 Telephone [facility] [address] [place] [phone] Reynaldo Justin NP 07/12/2024 Orders Only [facility] [address] [place] [phone] Reynaldo Justin NP Spine pain, lumbar (Primary Dx) 07/12/2024 Telephone [facility] [address] [place] [address] [address], [place] [phone] Reynaldo Justin NP Mri 07/10/2024 11:57 AM BULK COOLERS INSTALLER - 07/10/2024 11:59 PM BULK COOLERS INSTALLER Hospital Encounter [facility] [address] [place] [address] Lumbar radiculopathy, acute Discharge Disposition: Discharge to home or self care 07/09/2024 Telephone [facility] Primary Care at [address] [place] [phone] Bassam Sanchez MD Medical Question/Miscellane ous 07/06/2024 1:30 PM BULK COOLERS INSTALLER Office Visit [facility] at [address] [place] [phone] Bassam Sanchez MD Lumbar radiculopathy, acute (Primary Dx); 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; Encounter for screening mammogram for malignant neoplasm of breast 06/28/2024 10:45 AM BULK COOLERS INSTALLER Office Visit [facility] at [address] [phone] Zuleyma Quintero PA Lumbar radiculopathy, acute (Primary Dx) 06/28/2024 Orders Only [facility] at [address] [place] [address] Salazar Teixeira PA 06/20/2024 1:30 PM BULK COOLERS INSTALLER Office Visit [facility] at [address] [place] [address] Kelle Kumar, SEGUN Other closed fracture of right pubis with routine healing, subsequent encounter (Primary Dx); Hypertension, essential; Acute midline low back pain without sciatica 06/11/2024 Telephone [facility] at [address] [place] [address] Michelle Aldridge MD Additional Services Or Orders 06/08/2024 Telephone [facility] [address] [place] [address] [address] [place] [address] Marvin Joe from Last 3 Months Immunizations Immunization Administration Dates Next Due COVID-19 mRNA (Hatsize) 0.3 m L (30 mcg) vaccine (12 [...] 04/08/2023 Rotavirus, Unspecified 04/06/2023 ZOSTER Recombinant 09/19/2019,06/06/2019 Surgical History Surgery Date Site/Laterality Comments APPENDECTOMY Appendectomy TUBAL LIGATION Bilateral tubal ligation OTHER SURGICAL HISTORY 07/18/1966 - 07/17/1967 : OTHER SURGICAL HISTORY Right basel cell skin cancer removed, neck TUBAL LIGATION Tubal ligation Medical History Medical History Date Comments Hyperlipidemia Hyperlipidemia Hx Other Medical ; Outc ome: 34W0D week 6lb(s) 7 oz Male Family History Medical History Relation Name Comments Emphysema Father Alzheimer's disease Mother Relation Name Status Comments Father Mother Social History Tobacco Use Types Packs/Day Years Used Date Smoking Tobacco: Never Smokeless Tobacco: Never Tobacco Cessation:Counseling Given: Not Answered Alcohol Use Standard Drinks/Week Comments Yes 0 (1 standard drink = 0.6 oz pur e alcohol) [facility] Utilities Answer Date Recorded In the past 12 months has th e electric, gas, oil, or water company threatened to shut off services in your [...] often do you attend chur ch or yazidi services? Never 05/30/2024 Do you belong to any clubs o r organizations such as uatsdin groups, unions, fraternal or athletic groups, or [...] any time in the past 12 m [facility], were you homeless or living in a assisted (including now)? No 05/30/2024 Personal Safety Answer Date Recorded Have you ever been in or are you currently in a harmful physical or emotional relationship or is someone making you feel afraid or unsafe? Denies 05/29/2024 Comments No Sex and Gender Information Value Date Recorded Sex Assigned at Not on file Legal Sex Female 1:06 PM BULK COOLERS INSTALLER Gender Identity Not on file Sexual Orientation Not on file Obstetrics History Para Term AB IAB SAB Ectopic Multiple Livin g Live Births 1 1 Date Outcome GA Total Labor Labor/2nd/3rd Weight Sex Type Anes PTL Prudence A1 A5 Name Clin Term Last Filed Vital Signs Vital Sign Reading Time Taken Comments Blood Pressure 132/72 08/03/2024 11:33 AM BULK COOLERS INSTALLER Pulse 76 08/03/2024 11:33 AM BULK COOLERS INSTALLER Temperature 36.9 C (98.4 F) 08/03/2024 11:33 AM BULK COOLERS INSTALLER Respiratory Rate 16 08/03/2024 11:33 AM BULK COOLERS INSTALLER Oxygen Saturation 99% 06/28/2024 10:36 AM BULK COOLERS INSTALLER Inhaled Oxygen Concentration - - Weight 55.8 kg (123 lb) 08/03/2024 11:33 AM BULK COOLERS INSTALLER Height 162.6 cm (5' 4 ) 08/03/2024 11:33 AM BULK COOLERS INSTALLER Body Mass Index 21.11 08/03/2024 11:33 AM BULK COOLERS INSTALLER Plan of Treatment Health Maintenance Due Date Last Done Comments Breast Cancer Screening-Mammogram 09/07/2024 09/07/2023, 10/03/2019, 10/20/2016, Additional history exists Covid-19 Vaccine ( season) 2024 05/16/2024, 04/08/2023, 04/06/2023, Additional history exists Well Visit 65+ 04/12/2025 04/12/2024, 04/18, 05/04/2022, Additional history exists Fall Risk Assessment 06/20/2025 06/20/2024, 06/01/2024, 05/16/2024, Additional history exists Depression Screening 07/06/2025 07/06/2024, 07/06/2024, 05/16/2024, Additional history exists Colon Cancer Screening-CT Colonography Discontinued 12/17/2009, 12/17/2009 Colon Cancer Screening-Colonoscopy Discontinued 12/17/2009, 12/17/2009 Colon Cancer Screening-DNA Stool Discontinued 12/18/19 10, 12/17/2009 Colon Cancer Screening-FIT Discontinued 12/17/2009, Colon Cancer Screening-Sigmoidoscopy Discontinued 12/17/2009, 12/17/2009 Zoster Vaccine Completed 09/19/2019, 06/06/2019 Pneumococcal vaccine 65+ Discontinued 06/26/2020 Hepatitis B Screening Completed 03/21/2024 Influenza Vaccine Completed 05/16/2024, 06/05/2008 DTaP/Tdap/Td Vaccine Discontinued Procedures Procedure Name Priority Date/Time Associated Diagnosis Comments XR PELVIS 1 OR 2 VIEWS Schedule Routine, Read Routine (OP Routine) 07/13/2024 2:41 PM BULK COOLERS INSTALLER Fracture follow-up XR LUMBAR SPINE AP LAT FLEX EX Schedule Routine, Read Routine (OP Routine) 07/10/2024 12:15 PM BULK COOLERS INSTALLER Lumbar radiculopathy, acute SCREENING MAMMOGRAM BILATERAL W VICTORIA Schedule Routine, Read Routine (OP Routine) 09/07/2023 12:55 PM BULK COOLERS INSTALLER Visit for screening mammogram HM COLONOSCOPY Routine 12/17/2009 from Last 3 Months or Most Recently Relevant to Health Maintenance Results * XR Pelvis 1 or 2 Views (07/13/2024 2:41 PM BULK COOLERS INSTALLER) Anatomical Region Laterality Modality Body, Pelvis N/A Digital Radiogra phy Narrative 07/13/2024 3:10 PM BULK COOLERS INSTALLER Superior and inferior right pubic rami fractures are again seen. No worsening displacement is noted. Limited healing is seen Reynaldo Ray Nhan CABANA ATTENDANT IMG XR PROCEDURES Final Result * XR Spine Lumbar Ap Lat Flex Ext min 4 Views (07/10/2024 12:15 PM BULK COOLERS INSTALLER) Anatomical Region Laterality Modality L-spine N/A Computed Radiogr aphy 07/11/2024 1:36 PM BULK COOLERS INSTALLER Narrative 07/11/2024 1:42 PM BULK COOLERS INSTALLER EXAM DESCRIPTION: XR SPINE LUMBAR AP LAT [...] pelvis dated 05/29/2024. FINDINGS: There are 5 iza-frf-lcvezgj lumbar type vertebral bodies. Insert demineralized there [...] Dar Reagan D.O. AP: AP Report ID: [id number] Reading Location: [id number] Procedure Note Reagan, Dar DO - 07/11/2024 EXAM DESCRIPTION: XR SPINE [...] pelvis dated 05/29/2024. FINDINGS: There are 5 cvy-shm-qxlmbmg lumbar type vertebral bodies. Insert demineralized there [...] Dar Reagan D.O. AP: AP Report ID: [id number] Reading Location: [place] [address] [place] Bassam Sanchez MD IMG XR PROCEDURES Final Result * SCREENING MAMMOGRAM BILATERAL W VICTORIA (09/07/2023 12:55 PM BULK COOLERS INSTALLER) Anatomical Region Laterality Modality Breast Bilateral Mammography 09/07/2023 1:07 PM BULK COOLERS INSTALLER Impressions 09/07/2023 1:07 PM BULK COOLERS INSTALLER There is no mammographic evidence of malignancy. A 1 year screening mammogram is recommended. BI-RADS: 1 - Negative. The patient has been or will be contacted. The patient will be entered into a reminder system with a target due date of 1 year for her next mammogram. Electronically signed by: Yanet Hand M.D. Narrative 09/07/2023 1:07 PM BULK COOLERS INSTALLER EXAMINATION: SCREENING MAMMOGRAM BILATERAL W VICTORIA ORDERING [...] Most Recently Relevant to Health Maintenance Insurance [facility] MEDICARE [employer] MEDICARE Advance Directives For more information, please contact: [phone] * Full Code (Latest Code Status on [...] 1:10 PM 04/07/2020 1:14 PM Care Teams Marketing Communications Leader Relationship Specialty Start Date End Date Bassam Sanchez MD [address] [facility] [address] [place] [address] PCP - General Family Medicine 07/06/24
--- OUTSIDE RECORDS SUMMARY | 2024-09-06 16:04 | XMS_ITS | Continuity of Care Document ---
Author Name Auto Generated, Auto Generated Organization [facility] [employer] Support Name Relationship Address Phone Belinda Salas Daughter Unknown Unavailable Estrella Salas Financial Responsible [employer] [address] [place] [address] Estrella Salas Self [address] [place] [address] Summary Purpose Consult/Referral Allergies, Adverse Reactions, Alerts Type Description/Agent Code Date Allergy Active Date Allergy Inactivated Date of Last Reaction Adverse Reactions Severity Status Comments Source of Information [employer] No Known Allergies Active Patient History Medications Medications Prescription Date Begun Date Discontinued Status Associated Diagnoses Ordering Provider traMADoL 50 mg tablet 1 TAB PRN Every 6 Hours 06/28/20 24 Active MD Michelle Dickson predniSONE 20 mg tablet 1 TAB Every 1 Day for 14 Days 06/28/20 24 Active MD Michelle Dickson ezetimibe 10 mg tablet 1 TAB 3 Times Weekly 06/13/20 24 Active MD Michelle Dickson levothyroxine 25 mcg tablet 1 TAB Every 1 Day 06/11/20 24 Active MD Michelle Dickson Aspir-Low 81 mg tablet,delayed release 1 TAB Every 1 Day 06/11/20 24 Active MD Michelle Dickson Fish OiL 1,000 mg capsule 1 CAP Every 1 Day 06/11/20 24 Active MD Michelle Dickson lisinopriL 5 mg tablet 1 TAB Every 1 Day 06/11/20 24 Active MD Michelle Dickson rosuvastatin 40 mg tablet 1 TAB 3 Times Weekly 06/11/20 24 Active MD Michelle Dickson Vitamin C 500 mg tablet 1 TAB Every 1 Day 06/11/20 24 Active MD Michelle Dickson cholecalciferol (vitamin D3) 250 mcg (10,000 unit) capsule 1 CAP Every 1 Day 06/11/20 24 Active MD Michelle Dickson mecobalamin (vitamin B12) 5,000 mcg disintegrating tablet 1 TAB Every 1 Day 06/11/20 24 Active MD Michelle Dickson Lumigan 0.01 % eye drops 1 DROP Every 1 Day 06/11/20 24 Active MD Michelle Dickson benzonatate 100 mg capsule 1 CAP PRN 3 Times Daily 06/11/20 24 Active MD Michelle Dickson oxyCODONE 5 mg tablet 1-2 tab PRN Every 6 Hours 06/11/20 24 Active MD Michelle Dickson Glucosamine Chondroitin 550 mg-30 mg-1 mg capsule 1 TAB 2 Times Daily 06/11/20 24 Active MD Michelle Dickson multivitamin tablet 1 TAB Every 1 Day 06/11/20 24 Active MD Michelle Dickson turmeric 400 mg capsule 1 CAP 2 Times Daily 06/11/20 24 Active MD Michelle Dickson Cinnamon 500 mg capsule 1 CAP 2 Times Daily 06/11/20 24 Active MD Michelle Dickson Co Q-10 100 mg capsule 1 CAP Every 1 Day 06/11/20 24 Active MD Mcihelle Dickson Conditions/Problems Problem/Diagnosis Awareness of Diagnosis Code (ICD-10) Onset Date (Start Date) Resolution Date (End Date) Status Source Comments CARE HOME (CURRENT) USE OF ANTITHROMBOTICS/ANT IPLATELETS Z79.02 06/11/20 24 Active MD Michelle Darling OTHER CARE HOME (CURRENT) DRUG THERAPY Z79.899 06/11/20 24 Active MD Michelle Darling OTHER REDUCED MOBILITY Z74.09 06/11/20 24 Active MD Michelle Darling UNSPECIFIED GLAUCOMA H40.9 06/11/20 24 Active MD Michelle Darling OTHER FRACTURE OF SACRUM, SUBSEQUENT ENCOUNTER FOR FRACTURE WITH ROUTINE HEALING S32.19XD 06/11/20 24 MD Michelle Arriaza FRACTURE OF SUPERIOR RIM OF RIGHT PUBIS, SUBSEQUENT ENCOUNTER FOR FRACTURE WITH ROUTINE HEALING S32.511D 05/29/20 24 MD Michelle Arriaza OTHER SPECIFIED FRACTURE OF RIGHT PUBIS, SUBSEQUENT ENCOUNTER FOR FRACTURE WITH ROUTINE HEALING S32.591D 05/29/20 24 MD Michelle Arriaza UNSPECIFIED FRACTURE OF SACRUM, SUBSEQUENT ENCOUNTER FOR FRACTURE WITH ROUTINE HEALING S32.10XD 05/29/20 24 Active MD Michelle Darling UNSPECIFIED FALL, SUBSEQUENT ENCOUNTER W19.XXXD 05/29/20 24 MD Michelle Arriaza CARE HOME (CURRENT) USE OF ASPIRIN Z79.82 05/29/20 24 MD Michelle Arriaza CABINET PROFESSIONAL (CURRENT) USE OF OPIATE ANALGESIC Z79.891 05/29/20 24 MD Michelle Arriaza URINARY TRACT INFECTION, SITE NOT SPECIFIED N39.0 05/29/20 24 MD Michelle Arriaza BASAL CELL CARCINOMA OF SKIN, UNSPECIFIED C44.91 05/29/20 24 MD Michelle Arriaza VITAMIN DEFICIENCY, UNSPECIFIED E56.9 05/29/20 24 MD Michelle Arriaza AGE-RELATED PHYSICAL DEBILITY R54 05/29/20 24 MD Michelle Arriaza PERSONAL HISTORY OF COVID-19 Z86.16 04/17/20 24 MD Michelle Arriaza ESSENTIAL (PRIMARY) HYPERTENSION I10 09/26/19 24 MD Michelle Arriaza ATHEROSCLEROTIC HEART DISEASE OF [place] CORONARY ARTERY WITHOUT ANGINA PECTORIS I25.10 09/26/19 24 MD Michelle Arriaza PULMONARY FIBROSIS, UNSPECIFIED J84.10 01/26/20 19 MD Michelle Arriaza 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
--- OUTSIDE RECORDS SUMMARY | 2024-09-06 16:04 | XMS_ITS | Clinical Summary ---
Author Organization [facility] Address [address] [place] [address] Phone Care Team Providers Care Market Editor Name Role Phone Néstor Cintron MD Primary Care Provider Unavaila ble Social History Tobacco Use Types Packs/Day Years Used Date Smoking Tobacco: Never Assessed Comments Unknown Sex and Gender Information Value Date Recorded Sex Assigned at Not on file Legal Sex Female 12:37 AM CDT Gender Identity Not on file Sexual Orientation Not on file Plan of Treatment Health Maintenance Due Date Last Done Comments DEXA Bone Density 1935 Hepatitis C Virus (HCV) Screening 1935 TdaP Immunization 1935 Pneumococcal Immunization (50+ years) (1 of 1 - PCV) 12/01/1987 Zoster Immunization (1 of 2) 12/01/1987 Respiratory Syncytial Virus (RSV) Immunization (Adult) (1 - 1-dose 75+ series) 2012 Influenza Immunization (#1) 2024 SARS-COV-2 Immunization ( season) 2024 04/06/2023, 05/05/2021, 09/05/2020, Additional history exists Hepatitis B Immunization Aged Out No longer eligible based on patient's age to complete this topic Meningococcal Immunization (ACWY) Aged Out No longer eligible based on patient's age to complete this topic Rotavirus Immunization Aged Out No lo nger eligible based on patient's age to complete this topic Care Teams Market Editor Relationship Specialty Start Date End Date Néstor Cintron MD [facility] [address] [address] PCP - General Internal Medicine 06/21/18
--- OUTSIDE RECORDS SUMMARY | 2024-09-06 16:04 | XMS_ITS | Encounter Summary ---
Author Organization [facility] Healthcare Address [address] [place] [address] Care Team Providers Care Solar Installer Technician Name Role Phone Néstor Cintron MD Primary Care Provi fannie Michelle Garcia MD Primary Care Provide r Bassam Sanchez MD Primary Care Provider + Encounter Details Date Type Department Care Team (Late st Contact Info) Description 07/29/2020 Telephone [facility] [address] [place] [address] Celeste Lange, RT Social History Tobacco Use Types Packs/Day Years Used Date Smoking Tobacco: Never Smokeless Tobacco: Never Alcohol Use Standard Drinks/Week Comments Yes 0 (1 standard drink = 0.6 oz pur e alcohol) PHQ-2 Answer Date Recorded PHQ-2 Total Score (If total score is 3 or more points, staff should administer the PHQ-9) 0 06/26/2020 Comments No Sex and Gender Information Value Date Recorded Sex Assigned at Not on file Legal Sex Female 1:06 PM [employer] Gender Identity Not on file Sexual Orientation Not on file documented as of this encounter Plan of Treatment Not on file documented as of this encounter Visit Diagnoses Not on filedocumented in this encounter Additional Health Concerns Infection Onset Date Last Indicated Resolved Time COVID: Suspected 05/01/2024 05/01/2024 05/01/2024 12:24 PM CDT COVID19 05/01/2024 05/01/2024 05/11/2024 3:05 AM CDT COVID: Recovered Comment:Added based on recent COVID infection. 05/11/2024 05/15/2024 08/09/2024 3:[address] documented as of this encounter Care Teams Solar Installer Technician Relationship Specialty Start Date End Date Néstor Cintron MD PCP - General 09/18/07 05/03/22 Michelle Garcia MD [address] [place] [address] [facility] [address] [place] [address] PCP - General Family Medicine 05/04/22 07/05/24 Bassam Sanchez MD [address] [facility] [address] [place] [address] PCP - General Family Medicine 07/06/24 documented as of this encounter
--- OUTSIDE RECORDS SUMMARY | 2024-09-06 16:04 | XMS_ITS | Continuity of Care Document ---
Author Organization [facility] Address [address] Pena [address] [address] Phone Care Team Providers Care Sport Shoe Spike Assembler Name Role Phone Joseph Arredondo MD, FACS Unavailable Unavailab le Allergies, Adverse Reactions, Alerts Substance Reaction Status Criticality No Known Allergies Active No Inform ation Medications Medication Instructions Dosage Effective Dates (start - stop) Status Comments Lumigan 0.01 % eye drops instill 1 drop by ophthalmic route every day in both eyes 1 drop - Active ezetimibe 10 mg tablet take 1 tablet by oral route every day 10 MG - Active Fish Oil 1,000 mg (120 mg-180 mg) capsule take 1 capsule by oral route every day 1 capsule - Active glucosamine-chondro itin 167 mg-133 mg capsule 1 tablet by mouth once a day - Active aspirin 81 mg tablet,delayed release take 1 tablet by oral route every day 81 MG - Active Vitamin C 500 mg capsule,extended release take 1 capsule by oral route every day 1 capsule - Active Vitamin D3 50 mcg (2,000 unit) capsule take 1 capsule by oral route every day 1 capsule - Active multivitamin capsule take 1 capsule by oral route every day - Active vitamin E 200 unit capsule 1 tablet by mouth once a day - Active Crestor 20 mg tablet take 1 tablet (20MG) by oral route every day 20 MG - Active Calcium 500 500 mg calcium (1,250 mg) tablet take 1 by oral route every day 1 - Active Tirosint 50 mcg capsule take 1 capsule by oral route every day 50 MCG - Active Lumigan 0.01 % eye drops instill 1 drop by ophthalmic route every day in both eyes 1 drop - No Longer Active Procedures Procedure Date Fundus Photography W/ Report Eye Exam & Treatment SCODI, Posterior Segment No Charge [facility] Fundus Photos 022 Visual Field Examination(s) Office/outpatient Visit, Est Fundus Photography W/ Report Visual Field Examination(s) Eye Exam & Treatment No Charge [facility] Fundus Photos 021 SCODI, Posterior Segment Office/outpatient Visit, Est Visual Field Examination(s) Fundus Photography W/ Report Eye Exam & Treatment SCODI, Posterior Segment No Charge [facility] Fundus Photos 020 Office/outpatient Visit, Est Visual Field Examination(s) Eye Exam & Treatment Fundus Photography W/ Report Office/outpatient Visit, Est No Charge GDX Posterior Segment 019 Visual Field Examination(s) Apr- Eye Exam & Treatment Apr- SCODI, Posterior Segment Office/outpatient Visit, Est Visual Field Examination(s) Eye Exam & Treatment SCODI, Posterior Segment Office/outpatient Visit, Est Visual Field Examination(s) Eye Exam & Treatment SCODI, Posterior Segment Office/outpatient Visit, Est Corneal Pachymetry Eye Exam & Treatment Office/outpatient Visit, Est SCODI, Posterior Segment Office/outpatient Visit, Est Visual Field Examination(s) Office/outpatient Visit, Est Optic Nerve Head Eval IPO Reduced 15% Office/outpatient Visit, Est Optic Nerve Head Eval IPO Reduced 15% Office/outpatient Visit, Est Optic Nerve Head Eval IPO Reduced 15% Visual Field Examination(s) Office/outpatient Visit, Est Optic Nerve Head Eval IPO Reduced 15% Office/outpatient Visit, Est Optic Nerve Head Eval IPO Reduced 15% Visual Field Examination(s) Office/outpatient Visit, Est Optic Nerve Head Eval IPO Reduced 15% Optic Nerve Topography Optic Nerve Topography Office/outpatient Visit, Est Optic Nerve Head Eval IPO Reduced 15% Office/outpatient Visit, Est Optic Nerve Head Eval IPO Reduced 15% Office/outpatient Visit, Est Optic Nerve Head Eval IPO Reduced 15% Office/outpatient Visit, Est Optic Nerve Head Eval IPO Reduced 15% Fundus Photography W/ Report Office/outpatient Visit, Est Optic Nerve Head Eval IPO Reduced 15% Office/outpatient Visit, Est Optic Nerve Head Eval Office/outpatient Visit, Est Optic Nerve Head Eval Office/outpatient Visit, Est Office/outpatient Visit, Est Visual Field Examination(s) Office/outpatient Visit, Est Visual Field Examination(s) Advance Directives Directive Yes / No Effective Date File Name No Information Encounters Encounter Description Practice Location Reason(s) For Visit Diagnoses Date Provider Providers Copied on Encounter [facility] [place] [facility], [address], [place], [place], [address], [place] [phone] [place] No Information 3 Maria Elena Ruiz. [facility] [address], [address], [place], [place], [address], [place]. tel:[phone] [facility], [address], [place], [place], [address], [place] [phone] SEC P[place] Professional Complete Exam (chief complaint) Combined forms of age-related cataract, bilateralLow -tension glaucoma, bilateral, moderate stage 3 Be Avila. [address] [facility], [facility] [address], [place], [place], [address], [place]. tel:[phone] Referring Provider: Shadi Marquez OD, [facility] [address] [place], [address]. tel:[phone] Office/outpa tient Visit, Est [facility], [address], [place], [place], [address], [place] [phone] SEC Piyush BLAKELY Professional 6 mo IOP check (chief complaint) Combined forms of age-related cataract, right eyeAge-relat ed nuclear cataract, left eyeLow-tensi on glaucoma, bilateral, moderate stage 2 Be Avila. [address], [address], [place], [place], [address], [place]. tel:[phone] Referring Provider: Shadi Marquez OD, [facility] [address] [place], [address]. tel:[phone] [facility], [address], [place], [place], [address], [place] [phone] SEC Abbie Byrne No Information 2 Saira OD Zuleyma. [facility] [address], [address], [place], [place], [address], [place]. tel:[phone] [facility], [address] [place] [address] [address], [place], [place], [address], [place] tel:[phone] SEC Piyush BLAKELY Professional 6 month Complete (chief complaint) Low-tension glaucoma, bilateral, moderate stageCombine d forms of age-related cataract, right eyeAge-relat ed nuclear cataract, left eyeDry eye syndrome of bilateral lacrimal glandsChoroi nico nevus of right eye 2 Be Avila. [address], [facility] [address], [place], [place], [address], [place]. tel:[phone] Referring Provider: Shadi Marquez OD, [facility] [address] [place], [address]. tel:[phone] Office/outpa tient Visit, Est [facility], [address] [place] [address] [address], [place], [place], [address], [place] tel:[phone] SEC Piyush BLAKELY Professional 6 month IOP check (chief complaint) Combined forms of age-related cataract, bilateralPri nina open-angle glaucoma, bilateral, moderate stage 1 Be Avila. [address], [address] [place], [address], [place]. tel:[phone] Referring Provider: Shadi Marquez OD, [facility] [address] [place], [address]. tel:[phone] [facility], [address], [place], [place], [address], [place] tel:[phone] SEC Piyush BLAKELY Professional 6 month Complete (chief complaint) Primary open-angle glaucoma, bilateral, moderate stagePunctat e keratitis, bilateralCom bined forms of age-related cataract, bilateralCho roidal nevus of right eye 1 Be Avila. [address], [address], [place], [place], [address], [place]. tel:[phone] Referring Provider: Shadi Marquez OD, [facility] [address] [place], [address]. tel:[phone] Office/outpa tient Visit, Est [facility], [address] [place] [address] [address], [place], [place], [address], [phone] SEC Piyuhs BLAKELY Professional 6 month IOP check (chief complaint) Primary open-angle glaucoma, bilateral, moderate stageAge-rel ated nuclear cataract, bilateral Carlos-2 8-202 0 Be Avila. [address] [employer], [facility] [place], [place], [address], [place]. tel:[phone] Referring Provider: Shadi Jimmy OD, [facility] [address] [place], [address]. tel:[phone] [facility], [address] [place] [address] [address], [place], [place], [address], [place] tel:[phone] SEC Piyush BLAKELY Professional No Information Apr-0 1-202 0 Be Avila. [address] [employer], [facility] [address], [place], [place], [address], [place]. tel:[phone] [facility], [address] [place] [address] [address], [place], [place], [address], [phone] SEC Piyush BLAKELY Professional 6 month Complete w/VF (chief complaint) Primary open-angle glaucoma, bilateral, moderate stageAge-rel ated nuclear cataract, right eyeCombined forms of age-related cataract, left eyeVitreous degeneration , left eyeChoroidal nevus of right eye Oct-2 1-201 9 Be Avila. [address] [employer], [address] [place] [place], [address], [place]. tel:[phone] Referring Provider: Shadi Marquez OD, [facility] [address] [place], [address]. tel:[phone] Office/outpa tient Visit, [facility], [address] [place] [address] [address], [place], [place], [address], [place] tel:[phone] SEC Piyush BLAKELY Professional 6 month IOP check (chief complaint) Primary open-angle glaucoma, bilateral, moderate stageAge-rel ated nuclear cataract, bilateral Apr- 9 Be Avila. [address] [facility], [facility] [place], [place], [address], [place]. tel:[phone] Referring Provider: Shadi Marquez OD, [facility] [address] [place], [address]. tel:[phone] [facility], [address] [place] [address] [address], [place], [place], [address], [place] tel:[phone] SEC Piyush BLAKELY Professional Complete Exam (chief complaint) Age-related nuclear cataract, right eyeCombined forms of age-related cataract, left eyePapilloma of noseSuperfic ial punctate keratitis of right eyePrimary open-angle glaucoma, bilateral, moderate stage Oct-1 8 Be Avila. [address] [facility] [place], [place], [address], [place]. tel:[phone] Referring Provider: Shadi Marquez OD, [facility] [address] [place], [address]. tel:[phone] Office/outpa tient Visit, [facility], [address] [place] [address] [address], [place], [place], [address], [place] tel:[phone] SEC Piyush BLAKELY Professional glaucoma, pressure check (chief complaint) No Information Apr-0 8 Kimberly Whitley. [address] [place], [address], [place]. tel:[phone] Referring Provider: Shadi Marquez OD, [facility] [address] [place], [address]. tel:[phone] [facility], [address] [place] [address] [address], [place], [place], [address], [place] tel:[phone] SEC Piyush BLAKELY Professional No Information Mar-2 3-201 8 Lr Austin. [address] [facility], [facility] [place], [place], [address], [place]. tel:[phone] [facility], [address] [place] [address] [address], [place], [place], [address], [place] tel:[phone] SEC Piyush BLAKELY Professional glaucoma, pressure check (chief complaint) No Information Oct-0 4-201 7 Harris Angi. [address] [place], [address], [place]. tel:[phone] Referring Provider: Shadi Marquez OD, [facility] [address] [place], [address]. tel:[phone] Office/outpa tient Visit, [facility], [address] [place] [address] [address], [place], [place], [address], [place] tel:[phone] SEC Piyush BLAKELY Professional 6 mo IOP check (chief complaint) No Information Mar-2 2-201 7 Erick Bell. [address] [facility] [place], [place], [address], [place]. tel:[phone] Referring Provider: Shadi Marquez OD, [facility] [address] [place], [address]. tel:[phone] [facility], [address] [place] [address] [address], [place], [place], [address], [place] tel:[phone] SEC Piyush BLAKELY Professional glaucoma, pressure check (chief complaint) No Information Sep-2 1-201 6 Wankum Ray. [address] [facility], [facility] [place], [place], [address], [place]. tel:[phone] Referring Provider: Shadi Marquez OD, [facility] [address] [place], [address]. tel:[phone] Office/outpa tient Visit, [facility], [address] [place] [address] [address], [place], [place], [address], [place] tel:[phone] SEC Piyush BLAKELY Professional 6 month IOP check and OCT for POAG check (chief complaint) No Information Sep- 6 Ismaelkana Bell. [address] [facility], [facility] [place], [place], [address], [place]. tel:[phone] Referring Provider: Shadi Marquez OD, [facility] [address] [place], [address]. tel:[phone] [facility], [address] [place] [address] [address], [place], [place], [address], [place] tel:[phone] SEC Piyush BLAKELY Professional Glaucoma (chief complaint) No Information 5 Ismaelkana Bell. [address] [facility], [facility] [place], [place], [address], [place]. tel:[phone] Referring Provider: Shadi Marquez OD, [facility] [address] [place], [address]. tel:[phone] Office/outpa tient Visit, [facility], [address] [place] [address] [address], [place], [place], [address], [place] tel:[phone] SEC Piyush BLAKELY Professional Glaucoma, pressure check (chief complaint) No Information Sep-2 - 5 Terrie Rosales. [address] [facility], [address], [place], [address], [place]. tel:[phone] Referring Provider: Shadi Marquez OD, [facility] [address] [place], [address]. tel:[phone] Office/outpa tient Visit, [facility], [address] [place] [address] [address], [place], [place], [address], [place] tel:[phone] SEC Piyush BLAKELY Professional Glaucoma, pressure check (chief complaint) No Information 4 Erick Bell. [address] [facility], [address] [place], [place], [address], [place]. tel:[phone] Referring Provider: Shadi Marquez OD, [facility] [address] [place], [address]. tel:[phone] Office/outpa tient Visit, [facility], [address] [place] [address] [address], [place], [place], [address], [place] tel:[phone] SEC Piyush BLAKELY Professional a comprehensive exam (chief complaint)a comprehensive exam (chief complaint) No Information 3 Wankana Bell. [address] [facility], [address] [place], [place], [address], [place]. tel:[phone] Referring Provider: Shadi Marquez OD, [facility] [address] [place], [address]. tel:[phone] Office/outpa tient Visit, [facility], [address] [place] [address] [address], [place], [place], [address], [place] tel:[phone] SEC Piyush BLAKELY Professional a comprehensive exam (chief complaint) No Information 2 Erick Bell. [address] [facility], [address] [place], [place], [address], [place]. tel:[phone] Referring Provider: Shadi Marquez OD, [facility] [address] [place], [address]. tel:[phone] Office/outpa tient Visit, [facility], [address] [place] [address] [address], [place], [place], [address], [place] tel:[phone] SEC Piyush BLAKELY Professional No Information 2 Erick Bell. [address], [address] [place], [place], [address], . tel:[phone] Referring Provider: Sahdi Marquez OD, [facility] [address] [place], [address]. tel:[phone] Office/outpa tient Visit, [facility], [address] [place] [address] [address], [place], [place], [address], tel:[phone] [facility] Professional No Information Nov-0 3-201 1 Wankum Ray. [address], [place], [address], [place]. tel:[phone] Referring Provider: Shadi Marquez OD, [facility] [address] [place], [address]. tel:[phone] Office/outpa tient Visit, [facility], [address] [place] [address] [address], [place], [place], [address], [place] tel:[phone] SEC [facility] Professional No Information Apr-0 4-201 1 Wankum Ray. [address], [place], [address], [place]. tel:[phone] Referring Provider: Shadi Marquez OD, [facility] [address] [place], [address]. tel:[phone] Office/outpa tient Visit, [facility], [address] [place] [address] [address], [place], [place], [address], [place] tel:[phone] SEC [facility] Professional No Information Oct-0 4-201 0 Wankum Ray. [address], [place], [address], [place]. tel:[phone] Referring Provider: Shadi Arboledabrandee OD, [facility] [address] [place], [address]. tel:[phone] [facility], [address] [place] [address] [address], [place], [place], [address], [place] tel:[phone] SEC Piyush BLAKELY Professional No Information 2-201 0 Wankum Ray. [address] [facility], [facility] [place], [address], . tel:[phone] Referring Provider: Ray Edge, [address] [facility] [place], [address] . tel:[phone] Office/outpa tient Visit, [facility], [address] [place] [address] [address], [place], [place], [address], tel:[phone] SEC Piyush BLAKELY Professional No Information 2-201 0 Wankum Ray. [address] [facility], [facility] [place], [place], [address], [place]. tel:[phone] Referring Provider: Shadi Marquez OD, [facility] [address] [place], [address]. tel:[phone] Office/outpa tient Visit, [facility], [address] [place] [address] [address], [place], [place], [address], [place] tel:[phone] SEC Piyush BLAKELY Professional No Information Jun- 4-200 9 Wankum Ray. [address] [facility], [facility] [place], [place], [address], [place]. tel:[phone] Referring Provider: Shadi Marquez OD, [facility] [address] [place], [address]. tel:[phone] Office/outpa tient Visit, [facility], [address] [place] [address] [address], [place], [place], [address], [place] tel:[phone] SEC Piyush BLAKELY Professional No Information Feb-2 5-200 9 Wankum Ray. [address] [facility], [facility] [place], [place], [address], [place]. tel:[phone] Referring Provider: Shadi Jimmy OD, [facility] [address] [place], [address]. tel:[phone] Office/outpa tient Visit, [facility], [address] [place] [address] [address], [place], [place], [address], [phone] SEC [facility] Professional No Information Carlos-2 8-200 9 Wankum Ray. [address] [facility], [facility] [place], [place], [address], [place]. tel:[phone] Referring Provider: Shadi Jimmy OD, [facility] [address] [place], [address]. tel:[phone] Office/outpa tient Visit, [facility], [address] [place] [address] [address], [place], [place], [address], [place] [phone] SEC [facility] Professional No Information Mar-0 9-200 9 Wankum Ray. [address] [facility], [place], [place], [address], [place]. tel:[phone] Referring Provider: Shadi Jimmy OD, [facility] [address] [place], [address]. tel:[phone] Office/outpa tient Visit, [facility], [address] [place] [address] [address], [place], [place], [address], [place] tel:[phone] SEC [facility] Professional No Information Nov-0 6-200 8 Wankum Ray. [address] [facility], [place], [place], [address], . tel:[phone] Referring Provider: Shadi Jimmy OD, [facility] [address] [place], [address]. tel:[phone] Office/outpa tient Visit, [facility], [address] [place] [address] [address], [place], [place], [address], [place] tel:[phone] SEC Piyush BLAKELY Professional No Information Carlos-0 3-200 8 Wankum Ray. [address] [facility], [facility] [place], [place], [address], [place]. tel:[phone] Referring Provider: Shadi Marquez OD, [facility] [address] [place], [address]. tel:[phone] Office/outpa tient Visit, [facility], [address] [place] [address] [address], [place], [place], [address], [place] tel:[phone] SEC Piyush BLAKELY Professional No Information May-2 9-200 8 Wanaureana Ray. [address] [facility], [facility] [place], [place], [address], [place]. tel:[phone] Referring Provider: Shadi Marquez OD, [facility] [address] [place], [address]. tel:[phone] Office/outpa tient Visit, [facility], [address] [place] [address] [address], [place], [place], [address], [place] tel:[phone] SEC Piyush BLAKELY Professional No Information Apr-2 4-200 8 Wankum Ray. [address], [facility] [place], [place], [address], [place]. tel:[phone] Referring Provider: Ray Edge, [address] [place], [address] . tel:[phone] Office/outpa tient Visit, [facility], [address] [place] [address] [address], [place], [place], [address], [place] tel:[phone] SEC Piyush BLAKELY Professional No Information Apr-2 0-200 7 Wankana Estebanald. [address], [place], [place], [address], . tel:[phone] Referring Provider: Ray Edge, [address] [facility] [address], [place], [address] . tel:[phone] Family History Family Member Type Diagnosis Age At Onset No Information Payers Payer name Insurance type Covered constitution party ID Authoriza tion(s) [employer] [id number] Social History Type Description Quantity Date Captured Comments Alcohol Use Details Unknown Caffeine Use Details Unknown Tobacco Use Status No Information Smoking Status No Information Sex Female Chief Complaint And Reason For Visit No Information Reason For Referral Reason For Referral No Information Plan Of Treatment Date Type Action Status Patient Education Open-Angle Glaucoma: Ca re Instructions completed Patient Education Cataracts: Care Instruc tions completed Patient Education Open-Angle Glaucoma: Ca re Instructions completed Patient Education Open-Angle Glaucoma: Ca re Instructions completed Patient Education Open-Angle Glaucoma: Ca re Instructions completed Patient Education Open-Angle Glaucoma: Ca re Instructions completed Patient Education Open-Angle Glaucoma: Ca re Instructions completed Patient Education Open-Angle Glaucoma: Ca re Instructions completed Patient Education Open-Angle Glaucoma: Ca re Instructions completed History Of Present Illness Encounter Date Complaint History Of Prese nt Illness Complete Exam The 86 year old patient presents for evaluation of Complete Exam in the right eye and left eye. Pt reports stable VA, OU, DV and NV, since last appt. Pt reports she is using Lumigan QHS OU, last used at 9-10 pm last night, and doesn't need refills. 6 mo IOP check The 86 year old patient presents for evaluation of 6 mo IOP check with repeat VF 24-2, OCT-ON, and Optomap in the right eye and left eye. Hx of CAT OU, Low Tension Glaucoma OU, PVD OD, ABMD OU, MICHELLE OU, and CR Nevus OD. Pt reports she is using Lumigan QHS OU (9-10 pm last night). Pt reports stable VA, OU, DV and NV, since last appt. 6 month Complete The 85 year old female presents for evaluation of 6 month Complete in the right eye and left eye. Hx of POAG OU, PVD OD, ABMD OU, CR Nevus OD, and Cataracts OU. Patient denies any problems or changes with eyes. VA is stable OU. Patient using Lumigan qd OU last used @ 9pm. 6 month IOP check The 85 year ol d female presents for evaluation of 6 month IOP check in the right eye and left eye. Hx of POAG OU, PVD OD, EBND OU, CR Nevus OD, MICHELLE OU, and Cataracts OU. Patient denies any problems or changes with eyes. VA stable OU. Patient using Lum qd OU last used @ 9pm. 6 month Complete The 84 year old female presents for evaluation of 6 month Complete in the right eye and left eye. Hx of POAG OU, MICHELLE OU, PVD OD, and Cataracts OU. Patient denies any problems or changes with her eyes. Patient using Lum qd OU last used @ 10pm, no refills needed. 6 month IOP check The 84 year ol d female presents for evaluation of 6 month IOP check in the right eye and left eye. Hx of POAG OU, SPK OD, PVD OD, Cataracts OU, and Nevus OD. Patient denies any problems or changes with eyes. Patient using Lum qd OU last used @ 10pm. No refills needed. 6 month Complete w/VF The 83 yea r old female presents for evaluation of 6 month Complete w/VF in the right eye and left eye. Hx of POAG OU, SPK OD, and Cataracts OU. Patient denies any problems or changes with eyes. Patient using Lumigan qd OU last used @ 7pm, no refills needed and an OTC art tear prn OU. 6 month IOP check The 82 year ol d female presents for evaluation of 6 month IOP check in the right eye and left eye. Hx of POAG OU, SPK OD, Papilloma of nose, and mild Cataracts OU. Patient denies any problems or changes with VA. Patient states he eyes are still dry she using OTC art tear and a gel gtt as well as Lumigan qd OU last used @10pm. NO refills needed. Complete Exam The 82 year old female presents for a complete POAG ou IOP check. Patient uses Lumigan qhs ou and [employer] [facility] AT bid ou and a gel drop at night. Patient denies any changes in vision ou. glaucoma, pressure check The 81 year old female presents for a 6 month POAG ou IOP check. Patient uses Lumigan qhs ou and AT bid ou. Patient denies any changes in vision ou. glaucoma, pressure check The 81 year old female presents for a complete POAG ou IOP check ou. Patient uses Lumigan qhs ou. Patient denies any changes in vision ou. Patient uses AT bid ou. 6 mo IOP check The 80 year old female presents for 6 mo IOP check in the right eye and left eye. Pt has Hx of CAT OU, POAG OU, and MICHELLE OU. Pt reports she uses Lumigan QHS OU, AT gel QHS, and AT gtts TID OU. Pt reports her eyes have been really dry, OU, and have gradually gotten worse x 6 months. Pt reports VA seems about the same,OU. glaucoma, pressure check The 80 year old female presents for a complete POAG ou IOP check. Patient uses Lumigan qhs ou. Patient denies any changes in vision ou. 6 month IOP check an d OCT for POAG check The 79 year old female presents for a 6 month IOP check and OCT for POAG check in the right eye and left eye. Patient denies sny problems or changes since last visit, still has dry eyes. Patient using Lumigan QD OU, needs refills. Glaucoma The 79 year old female presents for a complete POAG ou exam with a VF. Patient uses Lumigan qhs ou. Patient denies any changes in vision. Glaucoma, pressure check The 78 year old female presents for a 6 month IOP check. Patient uses Lumigan qhs ou. Patient denies any changes in vision. Glaucoma, pressure check Patient presents for a complete IOP check. Patient uses Lumigan qhs ou. Patient denies any changes in vision. Functional Status Date Functional Assessmen t No Information Instructions Date Instruction Additional Infor sharita Impression/Plan Impression/Plan Return in 6 months isak Lr M.D. for IOP check with VF , Fundus Photos and OCT (ON). 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 Will continue with same regimen, Lumigan QHS OU. No change in visual orantes OU. T-max is 21 OD 20 OS. Discussed cataracts with pt and treatment options. pt also understands at this time vision does not qualify to have CE at this time. Return to clinic in 6 months for IOP check with OCT ON or sooner with problems. Follow up - Return i n 6 months for complete exam with IOP check and 24-2 visual orantes Primary open-angle g laucoma, left eye, moderate stage - Educational material provided Related to Primary open-angle glaucoma, left eye, moderate stage Impression/Plan - In traocular pressure well controlled, tolerating medications. Will continue with same regimen. No change OCT ON. Recommend artificial tears prn for dry eyes. Return to clinic in 6 months for complete exam with IOP check and 24-2 visual orantes or sooner with any problems. 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 for IOP check , OCT (ON). Impression/Plan - Di scussed diagnosis in detail with patient. Intraocular pressure well controlled, tolerating medications. Will continue with same regimen. No change visual orantes OU. Discussed cataracts with pt and treatment options. pt also understands at this time vision does not qualify to have CE with insurance coverage. Return to clinic in 6 months for IOP check with OCT ON or sooner with any problems. Follow up - Return i n 6 months with Ray Suarez M.D. for Complete Exam , IOP check , Visual Field (24-2). Impression/Plan - IO P well controlled, no change in OCT ON. Continue same drop regimen. Sent refills of Lumigan QD OU to [facility]. Tried Xalatan in past and didn't work. Return to clinic in 6 months for complete IOP check with 24-2 visual orantes or sooner with any problems. 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 for IOP check. Impression/Plan - In traocular pressure well controlled, tolerating medications. Will continue with same regimen. No change in visual orantes. Return in 6 months for IOP check and OCT ON or sooner with any problems. - Return in 6 months with Ray Suarez M.D. for IOP with visual orantes Related to See list of assessments above - Intraocular pressu re well controlled, tolerating medications. Will continue with same regimen. Return in 6 months for complete IOP check with visual orantes. 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 Continue Lumigan qhs OU. Will continue to monitor. Related to Open Angle Glaucoma Cataract, Nuclear Sc lerosis, OU - established, stable - vision affected - will continue to monitor - No treatment currently recommended, patient will monitor vision changes and contact us with any decrease in vision. Related to Cataract, Nuclear Sclerosis Assessments Type Assessment Date No Information Patient Care Teams Name Effective Dates (start - stop) Status Members No Information
--- OUTSIDE RECORDS SUMMARY | 2024-09-06 16:04 | XMS_ITS | Encounter Summary ---
Author Organization [facility] Address [address] [place] [id number] Care Team Providers Care Director Of Critical Care Name Role Phone Néstor Cintron MD Primary Care Provi fannie Michelle Garcia MD Primary Care Provide r Bassam Sanchez MD Primary Care Provider + Encounter Details Date Type Department Care Team (Late st Contact Info) Description 12/17/2009 Orders Only [facility] [place] [facility] [address] [place] [address] Néstor Cintron MD [address] [place] [address] Social History Tobacco Use Types Packs/Day Years Used Date Smoking Tobacco: Never Assessed Comments Unknown Sex and Gender Information Value Date Recorded Sex Assigned at Not on file 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 Gender Identity Not on file Sexual Orientation Not on file documented as of this encounter Plan of Treatment Not on file documented as of this encounter Procedures Procedure Name Priority Date/Time Associated Diagnosis Comments COLONOSCOPY Routine 12/17/2009 documented in this encounter Results * Colonoscopy (12/17/2009) Anatomical Region Laterality Modality Other us Historical Provider ENDOSCOPY PROCEDURES Elizabeth l Result documented in this encounter Visit Diagnoses Not on filedocumented in this encounter Additional Health Concerns Infection Onset Date Last Indicated Resolved Time COVID: Suspected 04/07/2020 04/07/2020 04/07/2020 2:42 PM CDT COVID: Suspected Comment:Flag triggered by RSV panel. Per Dr. Lowry this patient has been tested and COVID-19 has been ruled out. 04/08/2020 04/08/2020 04/08/2020 1:10 PM CDT Respiratory Infection (LG), droplet Comment:Ruling out mycoplasma pneumonia 04/08/2020 04/08/2020 04/09/2020 9:39 AM C DT COVID: Suspected 05/01/2024 05/01/2024 05/01/2024 12:24 PM CDT COVID19 05/01/2024 05/01/2024 05/11/2024 3:05 AM CDT COVID: Recovered Comment:Added based on recent COVID infection. 05/11/2024 05/15/2024 08/09/2024 3:[address] documented as of this encounter Care Teams Director Of Critical Care Relationship Specialty Start Date End Date Néstor Cintron MD PCP - General 09/18/07 05/03/22 Michelle Garcia MD [address] [place] [address] PCP - General Family Medicine 05/04/22 07/05/24 Bassam Sanchez MD [address] [place] [address] PCP - General Family Medicine 07/06/24 documented as of this encounter
--- OUTSIDE RECORDS SUMMARY | 2024-09-06 16:04 | XMS_ITS | Encounter Summary ---
Author Organization [facility] Address [address] [place] [address] Phone Care Team Providers Care Machine Oiler Name Role Phone Néstor Cintron MD Primary Care Provi fannie Michelle Garcia MD Primary Care Provide r Bassam Sanchez MD Primary Care Provider + Encounter Details Date Type Department Care Team (Late st Contact Info) Description 11/14/2017 Orders Only [facility] ProviderJamie MD [address] [place] [id number] Social History Tobacco Use Types Packs/Day Years Used Date Smoking Tobacco: Never Smokeless Tobacco: Never Alcohol Use Standard Drinks/Week Comments Yes 0 (1 standard drink = 0.6 oz pur e alcohol) Comments Unknown Sex and Gender Information Value Date Recorded Sex Assigned at Not on file 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 Historical Provider LAB BLOOD ORDERABLES Elizabeth l Result documented in this encounter [...] documented as of this encounter Care Teams Machine Oiler Relationship Specialty Start Date End Date Néstor Cintron MD PCP - General 09/18/07 05/03/22 Michelle Garcia MD [address] [place] [address] PCP - General Family Medicine 05/04/22 07/05/24 Bassam Sanchez MD [address] [place] [address] PCP - General Family Medicine 07/06/24 documented as of this encounter
== END 2024-09-06 16:02 | disposition home or self-care (01) ==
LOC: ANHLAB 16:01
PROVIDERS: Visit Provider Plastic Surgery
DX: C44.319 Basal cell carcinoma of skin of other parts of face (principal)
CPT/HCPCS: 88305